=== PATIENT | female | born 1955 | race Caucasian/White ===

== ENCOUNTER → 2020-05-10 13:27 | Outpatient (BNVA) | payer MEDICARE, SELFPAY | PROVIDERS: PCP Family Medicine; Referring Provider Family Medicine; Visit Provider Surgery | DX: R92.0 Mammographic microcalcification found on diagnostic imaging of breast (principal) | CPT/HCPCS: 99204 ==

== ENCOUNTER 2020-05-12 09:21 | Outpatient (REF) | payer MEDICARE, SELFPAY ==
--- NOTE | 2020-05-12 09:26 | MM_ITS ---
EXAMINATION: STEREOTACTIC TOMOSYNTHESIS-GUIDED VACUUM-ASSISTED BREAST BIOPSY, RIGHT SPECIMEN RADIOGRAPH, RIGHT POST PROCEDURE DIGITAL MAMMOGRAM, RIGHT CLINICAL INFORMATION: Increased fine calcifications central 12:00 right breast for stereotactic sampling. COMPARISON: Mammography 07/09/2019, 09/11/2019, 04/06/2020. TECHNIQUE/PROCEDURE: Informed consent was obtained from the patient after discussion of the benefits, risks, and alternatives to biopsy today. Patient appeared to understand. Gave opportunity for questions. Patient signed consent form. BIOPSY TABLE: [employer] Prone Biopsy System. LESION: Increased fine calcifications central 12:00 right breast residing between 2 larger benign coarse calcifications. LOCAL ANESTHESIA: 5 mL 1% lidocaine; 10 mL 1% lidocaine with epinephrine. DERMATOTOMY: Single skin figueroa dermatotomy performed. NEEDLE: [employer] 9-gauge vacuum assisted core biopsy device. APPROACH: craniocaudal. TARGETING: Digital breast tomosynthesis used for targeting. CORES: 6. CLIP: [employer] T-shaped marker. SPECIMEN RADIOGRAPH: Specimen radiograph is taken in separate room using digital mammography. The index calcifications are in the excised cores. There are over 30 calcifications in the cores. POST PROCEDURE UNILATERAL DIGITAL MAMMOGRAM: The post biopsy mammogram is performed in separate room using separate digital mammography equipment from the biopsy procedure. CC and ML views are obtained. The breasts are heterogeneously dense, which may obscure small masses (breast composition category: c). The clip marker approximately 8 mm superficial to center of biopsy cavity consistent with mid accordion effect. The calcifications are decreased at the biopsy site consistent with the sampling. No gross hematoma. The patient tolerated the procedure well. No immediate complications. Home instructions reviewed with the patient. Final pathology results are pending. IMPRESSION: 1. Digital tomosynthesis-guided core biopsy right breast with clip placement. 2. Specimen radiograph taken and post procedure mammogram. There is mild superficial accordion effect. 3. Final pathology results pending. An addendum report will be issued.
== END 2020-05-12 09:22 | disposition home or self-care (01) ==
LOC: HO.MAMMO 09:21
PROVIDERS: PCP Family Medicine; Visit Provider Family Medicine
DX: R92.0 Mammographic microcalcification found on diagnostic imaging of breast (principal)
CPT/HCPCS: 19283; 88305; A4648

== ENCOUNTER → 2020-05-18 16:11 | Outpatient (BNVA) | payer MEDICARE, SELFPAY | PROVIDERS: PCP Family Medicine; Referring Provider Family Medicine; Visit Provider Surgery | DX: R92.0 Mammographic microcalcification found on diagnostic imaging of breast (principal); Z98.890 Other specified postprocedural states | CPT/HCPCS: 99213 ==

== ENCOUNTER → 2020-08-30 14:19 | Outpatient (BNVA) | payer MEDICARE, SELFPAY | PROVIDERS: Visit Provider Orthopaedic Surgery | DX: M22.2X1 Patellofemoral disorders, right knee (principal) | CPT/HCPCS: 20610; 99212; J1040 ==

== ENCOUNTER 2020-11-08 12:12 | Outpatient (REF) | payer MEDICARE, SELFPAY ==
--- NOTE | ~2020-11-08 | MM_ITS ---
EXAMINATION: MM DIAGNOSTIC DIGITAL BREAST TOMOSYNTHESIS, RIGHT CLINICAL INFORMATION: Benign right stereotactic biopsy for calcifications 05/12/2020 (Benign breast parenchyma with extensive fibrosis and coarse calcifications; negative for epithelial atypia, hyperplasia, and carcinoma). The lifetime risk of breast cancer based on the Tyrer-Cuzick Model is 6%. COMPARISON: Mammography: 05/12/2020, 04/06/2020, 09/11/2019, 07/09/2019 TECHNIQUE: Digital breast tomosynthesis is performed in both the craniocaudal and mediolateral oblique views along with computer-aided detection (CAD). Synthesized 2D images are generated from the tomosynthesis. Additional magnification right CC and magnification right ML views are obtained. FINDINGS: The breasts are heterogeneously dense, which may obscure small masses (ACR BI-RADS breast composition Category c). There is a biopsy clip marker central upper breast corresponding to the recent stereotactic sampling. Calcifications are decreased at the biopsy site as expected. Other calcifications appear stable. Parenchymal pattern is unremarkable. No mass or architectural abnormality. Results are provided to the patient at time of visit by the technologist. MM/MM tomosynthesis diagnostic RT IMPRESSION: Biopsy clip marker in position. Remaining calcifications stable. ASSESSMENT: BI-RADS 2: Benign RECOMMENDATION: Routine annual mammography screening, due in 6 months. This patient's information was entered into a reminder system with a target due date for their next mammogram.
== END 2020-11-08 12:13 | disposition home or self-care (01) ==
LOC: HO.MAMMO 12:12
PROVIDERS: Visit Provider Surgery
DX: R92.1 Mammographic calcification found on diagnostic imaging of breast (principal)
CPT/HCPCS: 77061; 77065

== ENCOUNTER 2021-02-03 10:23 | Outpatient (REF) | payer OTHER, SELFPAY ==
--- NOTE | ~2021-02-03 | XR_ITS ---
EXAMINATION: XR CHEST CLINICAL INFORMATION: Shortness of breath COMPARISON: None TECHNIQUE: 2 views of the chest were obtained. FINDINGS: The cardiac and mediastinal contours are normal. The lungs are clear. There is no pleural effusion or pneumothorax. There is curvature of the midthoracic spine to the right degenerative changes. XR/XR chest 2V IMPRESSION: No evidence for acute disease in the chest.
[2021-02-03 12:18] LABS: TSH reflex Free T4 1.23 uIU/mL (0.32-4.0)
[2021-02-03 12:20] LABS: Alanine Aminotransferase 22 U/L (0-31); Albumin Level 4.2 g/dL (3.5-5.0); Alkaline Phosphatase 76 U/L (39-117); Anion Gap 13 (12-20); Aspartate Amino Transferase 21 U/L (5-31); Bilirubin Total 0.4 mg/dL (0.0-1.0); Blood Urea Nitrogen 10 mg/dL (9-16); Calcium 9.4 mg/dL (8.4-10.2); Carbon Dioxide 23 mmol/L (22-29); Chloride 108 mmol/L (96-108); Cholesterol 192 mg/dL; Estimated Glomerular Filt Rate > 60; Glucose Fasting 102 mg/dL (60-99); HDL Cholesterol 49 mg/dL; LDL Cholesterol Calculated 119 mg/dl; Potassium 4.3 mmol/L (3.3-5.1); Sodium 140 mmol/L (135-145); Total Protein 6.9 g/dL (6.5-8.0); Triglycerides 120 mg/dL
[2021-02-04 07:06] LABS: Thyroglobulin Antibodies <1 IU/mL (< or = 1); Thyroid Peroxidase Antibodies 622 IU/mL (<9)
[2021-02-09 20:12] LABS: Vitamin D 25-OH, D2 <4 ng/mL; Vitamin D 25-OH, D3 38 ng/mL; Vitamin D 25-OH, Total 38 ng/mL (30-100)
== END 2021-02-03 10:24 | disposition home or self-care (01) ==
LOC: HO.LAB 10:23
PROVIDERS: PCP Internal Medicine; Visit Provider Internal Medicine
DX: R06.02 Shortness of breath (principal); E78.5 Hyperlipidemia, unspecified; E11.9 Type 2 diabetes mellitus without complications; E55.9 Vitamin D deficiency, unspecified; E03.9 Hypothyroidism, unspecified
CPT/HCPCS: 36415; 71046; 80053; 80061; 82306; 84443; 86376; 86800

== ENCOUNTER 2021-03-13 12:31 | Outpatient (REF) | payer OTHER, SELFPAY ==
--- NOTE | ~2021-03-13 | XR_ITS ---
EXAMINATION: XR SHOULDER, LEFT XR ANKLE, RIGHT CLINICAL INFORMATION: Pain. COMPARISON: None TECHNIQUE: 4 views left shoulder. 3 views right ankle. LEFT SHOULDER: 4 views of left shoulder show mild degeneration at the AC joint and mild acromial irregularity. Mild degeneration with mild likely degenerative cystic change of the humeral head. Mild degeneration in the inferior glenohumeral region. There is no evidence for an acute fracture or dislocation. RIGHT ANKLE: 3 views of the right ankle demonstrate no evidence for fracture or dislocation. Lateral soft tissue swelling is seen. Some mild bony spurring of the anterior aspect of the talus dorsally. Mild degeneration at the insertion of the Achilles. XR/XR shoulder LT min 2V IMPRESSION: Some evidence of degenerative changes are noted in the ankle and shoulder. Consider MRI to further evaluate if indicated. Soft tissue swelling laterally of the ankle. No acute fracture or dislocation.
--- NOTE | ~2021-03-13 | XR_ITS ---
EXAMINATION: XR SHOULDER, LEFT XR ANKLE, RIGHT CLINICAL INFORMATION: Pain. COMPARISON: None TECHNIQUE: 4 views left shoulder. 3 views right ankle. LEFT SHOULDER: 4 views of left shoulder show mild degeneration at the AC joint and mild acromial irregularity. Mild degeneration with mild likely degenerative cystic change of the humeral head. Mild degeneration in the inferior glenohumeral region. There is no evidence for an acute fracture or dislocation. RIGHT ANKLE: 3 views of the right ankle demonstrate no evidence for fracture or dislocation. Lateral soft tissue swelling is seen. Some mild bony spurring of the anterior aspect of the talus dorsally. Mild degeneration at the insertion of the Achilles. XR/XR ankle RT 2V IMPRESSION: Some evidence of degenerative changes are noted in the ankle and shoulder. Consider MRI to further evaluate if indicated. Soft tissue swelling laterally of the ankle. No acute fracture or dislocation.
== END 2021-03-13 12:32 | disposition home or self-care (01) ==
LOC: HO.XRAY 12:31
PROVIDERS: PCP Internal Medicine; Visit Provider Internal Medicine
DX: M25.512 Pain in left shoulder (principal); M25.571 Pain in right ankle and joints of right foot
CPT/HCPCS: 73030; 73600

== ENCOUNTER 2021-05-03 10:00 | Outpatient (RCR) | payer OTHER, SELFPAY ==
--- NOTE | 2021-04-05 13:54 | MHC.PT.EP ---
[facility] [place] Office [place] Office [place] Office [address] [phone] F: [phone] F: [phone] F: [phone] F: [phone] Physical Therapy Plan of Care Date of Evaluation: Date of Surgery: N/A Diagnosis: Pain in L shoulder Assessment: Pt is a 65yo F with a PMH including type 2 diabetes who presents to PT with chronic L shoulder pain since November. Pt presents with current impairments in pain, ROM, strength, soft tissue restrictions, and posture. She is limited functionally by reaching, lifting, overhead ADLs, and sleeping. She is a good candidate for skilled PT services to address current impairments and facilitate return to PLOF. Frequency and Duration: The patient will be seen 2x/week for 4 weeks Short Term Goals: Pt will be I with HEP to promote self management of symptoms Pt will improve L shoulder flexion by at least 5 degrees Pt will report pain < 8/10 after functional mobility Patient Registration Supervisor Goals: Pt will demonstrate full ROM and strength throughout L shoulder Pt will perform ADLs with pain < 4/10 Pt will demonstrate improvements in functional mobility by statistically significant improvement in SPADI outcome measure. Treatment Plan: Modalities to reduce pain, spasms and effusion. Manual therapy to restore motion and function. Therapeutic exercise to improve strength and flexibility. Neuromuscular re-education for posture and balance. Therapeutic activities to return to functional activities of daily living. Electronically signed by: Suzanne Gonzalez, PT, DPT Please sign and return to therapist. Thank you for your referral.
--- NOTE | 2021-05-10 09:53 | MHC.PT.DC ---
[facility] [place] Office [place] Office [place] Office [address]one [address] [phone] F: [phone] F: [phone] F: [phone] F: [phone] Physical Therapy Discharge Report Diagnosis: Pain in L shoulder Date of Surgery: N/A Date of Evaluation: 04/05/21 Date of Discharge: 05/09/21 Treatments to Date: 8 Cancellations to Date: No Shows to Date: Discharge Status: Achieved Goals Improved Function Independent with HEP Discharge Summary: Pts last PT visit was 05/03/21. She has made excellent progress since SOC. She has improved her L shoulder ROM and function and has had a decrease in pain. She is being D/C from skilled PT services. She was provided with updated, printed copy of HEP and theraband. No further skilled PT intervention indicated at this time. Electronically signed by: Suzanne Gonzalez, PT, DPT Please sign and return to therapist. Thank you for your referral.
== END 2021-05-10 09:53 | disposition home or self-care (01) ==
LOC: HO.PT 10:00
PROVIDERS: PCP Internal Medicine; Visit Provider Internal Medicine
DX: M25.512 Pain in left shoulder (principal)
CPT/HCPCS: 97110; 97140; 97150; 97162

== ENCOUNTER 2021-05-09 13:31 | Outpatient (REF) | payer OTHER, SELFPAY ==
--- NOTE | ~2021-05-09 | MM_ITS ---
EXAMINATION: MM SCREENING DIGITAL BREAST TOMOSYNTHESIS, BILATERAL CLINICAL INFORMATION: Screening. Asymptomatic. Benign right stereotactic biopsy 05/12/2020 (benign breast parenchyma with extensive fibrosis and coarse calcifications; negative for epithelial atypia, hyperplasia, and carcinoma). The lifetime risk of breast cancer based on the Tyrer-Cuzick Model is 12%. COMPARISON: Mammography: 11/08/2020, 05/12/2020, 04/24/2020, 720, 07/09/2019 TECHNIQUE: Digital breast tomosynthesis is performed in both the craniocaudal and mediolateral oblique views along with computer-aided detection (CAD). Synthesized 2D images are generated from the tomosynthesis. FINDINGS: The breasts are heterogeneously dense, which may obscure small masses (ACR BI-RADS breast composition Category c). There are no significant masses, abnormal calcifications, or other abnormalities. Parenchymal pattern is similar to prior studies. No developing density. There is biopsy clip marker central right breast with coarse and fine calcifications again seen in this area. No significant MM/MM tomosynthesis screening BI IMPRESSION: No mammographic evidence of malignancy. ASSESSMENT: BI-RADS 2: Benign RECOMMENDATION: Routine annual mammography screening. This patient's information was entered into a reminder system with a target due date for their next mammogram.
== END 2021-05-09 13:32 | disposition home or self-care (01) ==
LOC: HO.MAMMO 13:31
PROVIDERS: Visit Provider Internal Medicine
DX: Z12.31 Encounter for screening mammogram for malignant neoplasm of breast (principal)
CPT/HCPCS: 77063; 77067

== ENCOUNTER 2021-09-18 07:20 | Outpatient (REF) | payer OTHER, SELFPAY ==
--- NOTE | ~2021-09-18 | XR_ITS ---
EXAMINATION: BILATERAL KNEE X-RAY CLINICAL INFORMATION: Pain. COMPARISON: Previous x-ray May 2019. TECHNIQUE: Standing AP view of both knees and lateral and sunrise view of the right knee. FINDINGS: Right Knee: Bone alignment is normal. No fracture or dislocation is seen. There is mild arthritis at the medial femoral tibial and patellofemoral joints. There is a small osteophyte at the quadriceps tendon insertion to the patella. There is a small joint effusion. Left Knee: Standing AP view of the left knee demonstrates mild arthritis at the medial femoral tibial joint. XR/XR knee RT 2V IMPRESSION: RIGHT KNEE: Arthritis at the medial femoral tibial and patellofemoral joints and small joint effusion. LEFT KNEE: Mild arthritis at the medial femoral tibial joint.
--- NOTE | ~2021-09-18 | XR_ITS ---
EXAMINATION: BILATERAL KNEE X-RAY CLINICAL INFORMATION: Pain. COMPARISON: Previous x-ray May 2019. TECHNIQUE: Standing AP view of both knees and lateral and sunrise view of the right knee. FINDINGS: Right Knee: Bone alignment is normal. No fracture or dislocation is seen. There is mild arthritis at the medial femoral tibial and patellofemoral joints. There is a small osteophyte at the quadriceps tendon insertion to the patella. There is a small joint effusion. Left Knee: Standing AP view of the left knee demonstrates mild arthritis at the medial femoral tibial joint. XR/XR knee standing BI IMPRESSION: RIGHT KNEE: Arthritis at the medial femoral tibial and patellofemoral joints and small joint effusion. LEFT KNEE: Mild arthritis at the medial femoral tibial joint.
== END 2021-09-18 07:21 | disposition home or self-care (01) ==
LOC: HO.HOSX 07:20
PROVIDERS: Visit Provider Physician Assistant
DX: M76.821 Posterior tibial tendinitis, right leg (principal)
CPT/HCPCS: 73560; 73565; 99212

== ENCOUNTER 2021-10-03 08:26 | Outpatient (REF) | payer OTHER, SELFPAY ==
[2021-10-03 09:04] LABS: MANUAL DIFF FLAG NO
[2021-10-03 09:34] LABS: Basophils Percent Auto 0.7 % (0-2); Eosinophils Absolute Auto 0.1 X10*3/uL (0.0-0.4); Eosinophils Percent Auto 1.3 % (0-4); Hematocrit 43.2 % (37.0-47.0); Hemoglobin 14.2 g/dl (12.0-16.0); Imm Gran Abs Auto 0.02 X10*3/uL (0.00-0.03); Imm Gran Pct Auto 0.4 % (0.0-0.4); Lymphocytes Absolute Auto 1.6 X10*3/uL (1.2-4.9); Lymphocytes Percent Auto 29.6 % (20-40); Mean Corpuscular HGB Conc 32.9 g/dl (31.0-35.0); Mean Corpuscular Hemoglobin 29.1 pg (27.0-33.0); Mean Corpuscular Volume 88.5 fL (80.0-98.0); Mean Platelet Volume 9.6 fL (9.4-12.3); Monocytes Absolute Auto 0.5 X10*3/uL (0.1-1.2); Neutrophils Absolute Auto 3.2 x10*3/uL (2.0-8.3); Platelet Count 278 X10*3/uL (160-400); Red Blood Count 4.88 X10*6/uL (4.20-5.50); White Blood Count 5.5 X10*3/uL (4.8-10.8)
[2021-10-03 10:05] LABS: Alanine Aminotransferase 25 U/L (0-31); Albumin Level 4.4 g/dL (3.5-5.0); Alkaline Phosphatase 88 U/L (39-117); Anion Gap 13 (12-20); Aspartate Amino Transferase 22 U/L (5-31); Bilirubin Total 0.8 mg/dL (0.0-1.0); Blood Urea Nitrogen 15 mg/dL (9-16); Calcium 9.8 mg/dL (8.4-10.2); Carbon Dioxide 27 mmol/L (22-29); Chloride 103 mmol/L (96-108); Cholesterol 155 mg/dL; Estimated Glomerular Filt Rate > 60; Glucose Fasting 100 mg/dL (60-99); HDL Cholesterol 50 mg/dL; LDL Cholesterol Calculated 94 mg/dl; Potassium 4.4 mmol/L (3.3-5.1); Sodium 139 mmol/L (135-145); Total Protein 7.2 g/dL (6.5-8.0); Triglycerides 59 mg/dL
[2021-10-03 10:34] LABS: Folate 10.4 ng/mL (> or = 4.0); Vitamin B12 695 pg/mL (200-900)
[2021-10-03 11:24] LABS: Creatinine Urine 154.01 mg/dL; Microalbum/Creatinine Ratio Ur 3.8 ug/mg cr
[2021-10-06 23:26] LABS: Intrinsic Factor Antibodies Negative (Negative)
[2021-10-07 02:07] LABS: Parietal Cell Antibody <=20.0 Unit (<=20.0)
[2021-10-07 11:52] LABS: Vitamin D 25-OH, D2 <4 ng/mL; Vitamin D 25-OH, D3 32 ng/mL; Vitamin D 25-OH, Total 32 ng/mL (30-100)
== END 2021-10-03 08:27 | disposition home or self-care (01) ==
LOC: HO.LAB 08:26
PROVIDERS: PCP Internal Medicine; Visit Provider Internal Medicine
DX: E55.9 Vitamin D deficiency, unspecified (principal); E53.8 Deficiency of other specified B group vitamins; D64.9 Anemia, unspecified; E78.5 Hyperlipidemia, unspecified; E11.9 Type 2 diabetes mellitus without complications
CPT/HCPCS: 36415; 80053; 80061; 82043; 82306; 82607; 82746; 83516; 85025; 86340

== ENCOUNTER 2021-11-13 08:00 | Outpatient (REF) | payer OTHER, SELFPAY ==
--- NOTE | ~2021-11-13 | XR_ITS ---
EXAMINATION: RIGHT KNEE CLINICAL INFORMATION: Right knee pain COMPARISON: 09/18/2021 TECHNIQUE: AP bilateral, right knee Lateral and sunrise view FINDINGS: There is mild marginal spurring of the medial compartment of right and left knee joints consistent with mild changes of osteoarthritis. There is patellar spurring. There is no joint effusion. XR/XR knee RT 2V IMPRESSION: Stable mild degenerative changes of the right knee joint
--- NOTE | ~2021-11-13 | XR_ITS ---
EXAMINATION: RIGHT KNEE CLINICAL INFORMATION: Right knee pain COMPARISON: 09/18/2021 TECHNIQUE: AP bilateral, right knee Lateral and sunrise view FINDINGS: There is mild marginal spurring of the medial compartment of right and left knee joints consistent with mild changes of osteoarthritis. There is patellar spurring. There is no joint effusion. XR/XR knee standing BI IMPRESSION: Stable mild degenerative changes of the right knee joint
== END 2021-11-13 08:01 | disposition home or self-care (01) ==
LOC: HO.HOSX 08:00
PROVIDERS: Visit Provider Physician Assistant
DX: M76.821 Posterior tibial tendinitis, right leg (principal); M25.562 Pain in left knee; M25.571 Pain in right ankle and joints of right foot; M22.2X1 Patellofemoral disorders, right knee; E11.9 Type 2 diabetes mellitus without complications; I10 Essential (primary) hypertension; E03.9 Hypothyroidism, unspecified; E53.8 Deficiency of other specified B group vitamins; E55.9 Vitamin D deficiency, unspecified; Z88.0 Allergy status to penicillin
CPT/HCPCS: 20610; 73560; 73565; 99212; J1020

== ENCOUNTER 2021-12-06 09:44 | Outpatient (REF) | payer OTHER, SELFPAY ==
--- NOTE | ~2021-12-06 | MR_ITS ---
EXAMINATION: MRI BRAIN WITHOUT CONTRAST CLINICAL INFORMATION: Resting tremor. COMPARISON: CT head 05/04/2019. TECHNIQUE: Multiplanar MR imaging of the brain was performed without contrast. FINDINGS: There are scattered nonspecific foci of T2 FLAIR signal hyperintensity within the periventricular white matter. No acute territorial infarct. No pathological magnetic susceptibility artifact. Intracranial vascular flow voids are maintained. There is no intracranial mass effect or midline shift. No abnormal extra-axial collection. Lateral and third ventricles are normal. No hydrocephalus. Midline structures including the cervicomedullary junction are normal. No acute bone marrow signal changes. There is no mastoid or middle ear effusion. Mild paranasal sinus disease primarily affecting the ethmoid air cells. Globes and orbits are symmetric. MR/MR head/brain wo con IMPRESSION: There are a few scattered chronic small vessel ischemic changes within the periventricular white matter. Otherwise unremarkable examination. No evidence of acute territorial infarct or hemorrhage. No intracranial mass effect or hydrocephalus.
== END 2021-12-06 09:45 | disposition home or self-care (01) ==
LOC: HO.MRI 09:44
PROVIDERS: Visit Provider Internal Medicine
DX: G25.2 Other specified forms of tremor (principal)
CPT/HCPCS: 70551

== ENCOUNTER 2022-01-22 10:00 | Outpatient (RCR) | payer OTHER, SELFPAY ==
--- NOTE | 2021-12-01 13:23 | MHC.PT.EP ---
[facility] [place] Office [place] Office [place] Office [address] [phone] F: [phone] F: [phone] F: [phone] F: [phone] Physical Therapy Plan of Care Date of Evaluation: Date of Surgery: NA Diagnosis: POSTERIOR TIBIAL TENDONITIS R LEG Assessment: Pt IS 66 YO F REFERRED TO PT FROM ORTHO (ERIN SHERIFF) WITH POSTERIOR TIBIAL TENDONITIS R LEG. Pt REPORTS CHRONIC R KNEE PAIN (WITH RELIEF WITH CORTISONE INJECTIONS) AND PAIN R MED ANKLE WHICH STARTED INSIDIOUSLY ABOUT 5 MONTHS AGO. PRESENTS WITH LIMITED R ANKLE ROM AND STRENGTH WITH PAIN (AND REPORTED INFLAMMATION) WITH TTP AND LIMP (DECREASED WB R). SHOULD BENEFIT FROM PT TO ADDRESS THESE ISSUES Frequency and Duration: The patient will be seen 2X/WK X 8 WKS Short Term Goals: 1. INCREASED AWARENESS LE CARE 2. I HEP WITH DC EX PLAN 3. SLS AT LEAST 10 SEC R Igniter Assembler Goals: 1. Pt TO WEAR ORTHOTICS WITH RELIEF 2. DECREASED LIMP 3. DECREASED R ANKLE PAIN AT LEAST 50% WITH ADLS AND ROM 4. INCREASED R ANKLE STRENGTH 1/2 MM GRADE Treatment Plan: Modalities to reduce pain, spasms and effusion. Manual therapy to restore motion and function. Therapeutic exercise to improve strength and flexibility. Neuromuscular re-education for posture and balance. Therapeutic activities to return to functional activities of daily living. Electronically signed by: ALCIDES RAMOS PT Please sign and return to therapist. Thank you for your referral.
--- NOTE | 2022-01-22 13:49 | MHC.PT.DC ---
[facility] [place] Office [place] Office [place] Office [address] Tone Warner 140 [facility] [phone] F: [phone] F: [phone] F: [phone] F: [phone] Physical Therapy Discharge Report Diagnosis: POSTERIOR TIBIAL TENDONITIS R LEG Date of Surgery: NA Date of Evaluation: 12/01/21 Date of Discharge: 01/22/22 Treatments to Date: 12 Cancellations to Date: No Shows to Date: Discharge Status: Achieved Goals Improved Function Independent with HEP Discharge Summary: HAS MET MOST PT GOALS Electronically signed by: ALCIDES RAMOS PT Please sign and return to therapist. Thank you for your referral.
== END 2022-01-22 13:50 | disposition home or self-care (01) ==
LOC: HO.PT 10:00
PROVIDERS: PCP Internal Medicine; Visit Provider Physician Assistant
DX: M76.821 Posterior tibial tendinitis, right leg (principal)
CPT/HCPCS: 97035; 97110; 97112; 97140; 97161; 97530; 97535

== ENCOUNTER 2022-05-11 08:28 | Outpatient (REF) | payer OTHER, SELFPAY ==
--- NOTE | ~2022-05-11 | MM_ITS ---
EXAMINATION: MM SCREENING DIGITAL BREAST TOMOSYNTHESIS, BILATERAL CLINICAL INFORMATION: Screening. Asymptomatic. The lifetime risk of breast cancer based on the Tyrer-Cuzick Model is 11%. COMPARISON: Mammography: 05/09/2021, 11/08/2020, 05/12/2020, 04/06/2020, 09/11/2019, 07/09/2019 TECHNIQUE: Digital breast tomosynthesis is performed in both the craniocaudal and mediolateral oblique views along with computer-aided detection (CAD). Synthesized 2D images are generated from the tomosynthesis. FINDINGS: The breasts are heterogeneously dense, which may obscure small masses (ACR BI-RADS breast composition Category c). There are no significant masses, abnormal calcifications, or other abnormalities. There is no developing density or architectural abnormality. Biopsy clip marker again noted on right central breast mid depth. The axilla are unremarkable. No significant changes. MM/MM tomosynthesis screening BI IMPRESSION: No mammographic evidence of malignancy. ASSESSMENT: BI-RADS 1: Negative RECOMMENDATION: Routine annual mammography screening. This patient's information was entered into a reminder system with a target due date for their next mammogram.
== END 2022-05-11 08:29 | disposition home or self-care (01) ==
LOC: HO.MAMMO 08:28
PROVIDERS: Visit Provider Internal Medicine
DX: Z12.31 Encounter for screening mammogram for malignant neoplasm of breast (principal)
CPT/HCPCS: 77063; 77067

== ENCOUNTER 2022-07-11 07:59 | Outpatient (REF) | payer OTHER, SELFPAY ==
[2022-07-11 09:45] LABS: Alanine Aminotransferase 24 U/L (0-31); Albumin Level 4.3 g/dL (3.5-5.0); Alkaline Phosphatase 75 U/L (39-117); Anion Gap 14 (12-20); Aspartate Amino Transferase 20 U/L (5-31); Bilirubin Total 0.6 mg/dL (0.0-1.0); Blood Urea Nitrogen 14 mg/dL (9-16); Calcium 9.5 mg/dL (8.4-10.2); Carbon Dioxide 23 mmol/L (22-29); Chloride 107 mmol/L (96-108); Cholesterol 218 mg/dL; Estimated Glomerular Filt Rate > 60; Glucose Fasting 100 mg/dL (60-99); HDL Cholesterol 42 mg/dL; LDL Cholesterol Calculated 152 mg/dl; Potassium 4.5 mmol/L (3.3-5.1); Sodium 139 mmol/L (135-145); Thyroid Stimulating Hormone 3.66 uIU/mL (0.32-4.0); Total Protein 6.9 g/dL (6.5-8.0); Triglycerides 124 mg/dL; Vitamin D 25-OH Total 33.7 ng/mL (>30)
[2022-07-11 09:55] LABS: Vitamin B12 361 pg/mL (200-900)
[2022-07-11 11:08] LABS: Creatinine Urine 135.97 mg/dL; Microalbum/Creatinine Ratio Ur 5.1 ug/mg cr
== END 2022-07-11 08:00 | disposition home or self-care (01) ==
LOC: HO.LAB 07:59
PROVIDERS: PCP Internal Medicine; Visit Provider Internal Medicine
DX: E06.3 Autoimmune thyroiditis (principal); E55.9 Vitamin D deficiency, unspecified; E53.8 Deficiency of other specified B group vitamins; E11.9 Type 2 diabetes mellitus without complications; E78.5 Hyperlipidemia, unspecified; I10 Essential (primary) hypertension
CPT/HCPCS: 36415; 80053; 80061; 82043; 82306; 82607; 82746; 84443

== ENCOUNTER → 2022-08-29 09:04 | Outpatient (BNVA) | payer OTHER, SELFPAY | PROVIDERS: PCP Internal Medicine; Visit Provider Nurse Practitioner Family | DX: Z12.11 Encounter for screening for malignant neoplasm of colon (principal); K21.9 Gastro-esophageal reflux disease without esophagitis | CPT/HCPCS: 99202 ==

== ENCOUNTER 2022-11-12 07:41 | Outpatient (REF) | payer OTHER, SELFPAY ==
[2022-11-12 08:26] LABS: Alanine Aminotransferase 30 U/L (0-31); Albumin Level 4.4 g/dL (3.5-5.0); Alkaline Phosphatase 83 U/L (39-117); Anion Gap 15 (12-20); Aspartate Amino Transferase 24 U/L (5-31); Bilirubin Total 0.6 mg/dL (0.0-1.0); Blood Urea Nitrogen 15 mg/dL (9-16); Calcium 9.4 mg/dL (8.4-10.2); Carbon Dioxide 27 mmol/L (22-29); Chloride 106 mmol/L (96-108); Cholesterol 153 mg/dL; Estimated Glomerular Filt Rate > 60; Glucose Fasting 105 mg/dL (60-99); HDL Cholesterol 43 mg/dL; LDL Cholesterol Calculated 95 mg/dl; Potassium 4.3 mmol/L (3.3-5.1); Sodium 144 mmol/L (135-145); Triglycerides 78 mg/dL
[2022-11-12 08:56] LABS: Thyroid Stimulating Hormone 4.38 uIU/mL (0.32-4.0); Vitamin B12 404 pg/mL (200-900); Vitamin D 25-OH Total 36.5 ng/mL (>30)
[2022-11-12 08:58] LABS: Creatinine Urine 174.54 mg/dL
== END 2022-11-12 07:42 | disposition home or self-care (01) ==
LOC: HO.LAB 07:41
PROVIDERS: PCP Internal Medicine; Visit Provider Internal Medicine
DX: E55.9 Vitamin D deficiency, unspecified (principal); E53.8 Deficiency of other specified B group vitamins; E78.5 Hyperlipidemia, unspecified; E06.3 Autoimmune thyroiditis; E11.9 Type 2 diabetes mellitus without complications
CPT/HCPCS: 36415; 80053; 80061; 82043; 82306; 82607; 82746; 84443

== ENCOUNTER 2023-01-22 08:20 | Outpatient (REF) | payer OTHER, SELFPAY ==
[2023-01-24 22:10] LABS: HPV mRNA E6/E7 rflx Not Detected (Not Detected)
== END 2023-01-22 08:21 | disposition home or self-care (01) ==
LOC: HO.LNP 08:20
PROVIDERS: PCP Internal Medicine; Visit Provider Advanced Practice Midwife
DX: Z01.419 Encounter for gynecological examination (general) (routine) without abnormal findings (principal); Z11.51 Encounter for screening for human papillomavirus (HPV)
CPT/HCPCS: 87624; 88142

== ENCOUNTER 2023-02-26 09:20 | Outpatient (REF) | payer OTHER, SELFPAY ==
[2023-02-26 11:14] LABS: Thyroid Stimulating Hormone 0.86 uIU/mL (0.32-4.0)
== END 2023-02-26 09:21 | disposition home or self-care (01) ==
LOC: HO.LAB 09:20
PROVIDERS: PCP Internal Medicine; Visit Provider Internal Medicine
DX: E06.3 Autoimmune thyroiditis (principal)
CPT/HCPCS: 36415; 84443

== ENCOUNTER 2023-05-17 07:39 | Outpatient (REF) | payer MEDICARE, SELFPAY ==
--- NOTE | ~2023-05-17 | MM_ITS ---
EXAMINATION: MM SCREENING DIGITAL BREAST TOMOSYNTHESIS, BILATERAL CLINICAL INFORMATION: Screening. Asymptomatic. COMPARISON: Mammography: This study is compared with prior exams dating back to 2019. TECHNIQUE: Digital breast tomosynthesis is performed in both the craniocaudal and mediolateral oblique views along with computer-aided detection (CAD). Synthesized 2D images are generated from the tomosynthesis. FINDINGS: The breasts are heterogeneously dense, which may obscure small masses (ACR BI-RADS breast composition Category c). There are grouped calcifications in the upper outer quadrant of the right breast. These warrant additional mammographic imaging magnification. There is a biopsy tissue marker present in the upper inner quadrant of the right right breast. There are associated, coarse benign calcifications. The right breast, there are no significant masses, abnormal calcifications, or other abnormalities. MM/MM tomosynthesis screening BI IMPRESSION: No mammographic evidence of malignancy. ASSESSMENT: BI-RADS BI-RADS 0 - Incomplete: Needs additional Imaging. RECOMMENDATION: Additional views of the right breast advised. Radiology department staff will contact the patient for additional imaging. Additional Imaging required This examination should not preclude the clinical evaluation of a suspicious palpable abnormality. This patient's information was entered into a reminder system with a target due date for their next mammogram.
== END 2023-05-17 07:40 | disposition home or self-care (01) ==
LOC: HO.MAMMO 07:39
PROVIDERS: PCP Internal Medicine; Visit Provider Internal Medicine
DX: Z12.31 Encounter for screening mammogram for malignant neoplasm of breast (principal)
CPT/HCPCS: 77063; 77067

== ENCOUNTER → 2023-05-17 08:15 | Outpatient (BNV) | payer MEDICARE, SELFPAY | PROVIDERS: PCP Internal Medicine; Visit Provider Radiology Diagnostic Radiology | DX: Z12.31 Encounter for screening mammogram for malignant neoplasm of breast (principal) | CPT/HCPCS: 77063; 77067 ==

== ENCOUNTER 2023-06-11 08:04 | Outpatient (AMB) | payer MEDICARE, SELFPAY ==
[2023-06-11 08:15] VITALS: BP 152/92; PULSE 90; O2SAT 98; BMI 34.2
--- NOTE | 2023-06-11 08:15 | MHC.PC.OV ---
Vital Signs 06/11/23 08:15 Height 5 ft 1 in Weight 181 lb BMI 34.2 BP 152/92 H Blood Pressure Location Lt brachial Position Sitting Pulse 90 Pulse Source Pulse Oximeter Pulse Oximetry (%) 98 Oxygen Delivery Method Room Air Intake Visit Reasons: DM Skip Pit Worker Required: Yes Allergies primidone Adverse Reaction (Severe, Verified 06/11/23 08:40) Dizziness Penicillins [PENICILLINS] Adverse Reaction (Intermediate, Verified 06/11/23 08:40) BURNING Medication List - Last Reconciled 06/11/23 by ARACELY Shaw atorvastatin 40 mg PO BEDTIME 90 days biotin mcg PO bisacodyl (Dulcolax (bisacodyl)) 10 mg (2 x 5 mg) PO ONCE 1 day cetirizine 10 mg PO DAILY 90 days cholecalciferol (vitamin D3) 25 mcg PO DAILY 90 days clotrimazole-betamethasone 1-0.05 % 1 appl topical BID 30 days cyanocobalamin (vitamin B-12) 500 mcg sublingual DAILY fluoxetine 20 mg PO DAILY ketoconazole-hydrocortisone 2-2.5 % 1 appl topical .once a day 30 days levothyroxine 75 mcg PO DAILY 90 days losartan 25 mg PO DAILY 90 days meloxicam 15 mg PO DAILY 30 days metformin 500 mg PO DAILY 90 days omeprazole 40 mg PO DAILY 90 days polyethylene glycol 3350 (Miralax) 238 grams PO ONCE trazodone 50 mg PO BEDTIME Tobacco use date assessed: 12/04/22 Fall risk assessment: No Falls in past year Last assessed Fall Risk: 06/11/23 Dental Screening Dental Screen Date: 06/11/23 Did you have a dental visit in the last 12 months?: No Did you have a dental problem in the last 6 months where you did not have access to dental care?: No Was dental information given to patient?: No HPI DM HPI Details Patient is a 67-year-old female who presents today to follow-up on her chronic conditions. Patient of Dr. Moe. Medical history significant for diabetes, hypothyroidism, hypercholesterolemia, hypertension among others. Patient reports that she is not always compliant with blood pressure and cholesterol medications, blood pressure slightly elevated in the office today. Patient did not take losartan this morning. Patient is interested in weight management referral for weight loss. 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 [facility] Medical History ASCUS of cervix with negative high risk HPV Uterine prolapse Female cystocele Leaking of urine Mild recurrent major depression Resting tremor Essential hypertension Autoimmune thyroiditis B12 deficiency Right ankle pain Left shoulder pain Shortness of breath Insomnia Hypovitaminosis D GERD (gastroesophageal reflux disease) Pure hypercholesterolemia Hypothyroidism Diabetes type 2, controlled Diabetes mellitus Surgical History History of hand surgery History of right breast biopsy (~2009) History of removal of ovarian cyst Family History Mother Abdominal ascites Father Pancreatitis Paternal Aunt History of breast cancer Social History Household Members: Family Housing: House Alcohol intake: never Patient Tobacco Use Status: Never used Tobacco e-Cigarette/Vaping Use: Never Used Second Hand Smoke Exposure: No service: No Current occupational status: retired Sexual orientation: Straight/Heterosexual Gender identity: Female Cognitive needs: No Hearing needs: No Vision needs: Yes Questionnaire PHQ-9 Over the last 2 weeks, how often have you been bothered by any of the following problems? 1. Little interest or pleasure in doing things: not at all 2. Feeling down, depressed, or hopeless: several days 3. Trouble falling or staying asleep, or sleeping too much: not at all 4. Feeling tired or having little energy: several days 5. Poor appetite or overeating: several days 6. Feeling bad about yourself - or that you are a failure or have let yourself or your family down: not at all 7. Trouble concentrating on things, such as reading the newspaper or watching television: not at all 8. Moving or speaking so slowly that other people could have noticed. Or the opposite - being so fidgety or restless that you have been moving around a lot more than usual: not at all 9. Thoughts that you would be better off or of hurting yourself in some way: not at all Total score: 3 Depression Screening Interpretation: Negative Depression Screening Done: Yes 59504 - PHQ-9 Billing: Yes Source: Developed by Drs. Brendan L. Cierra Morfin Kurt Kroenke and colleagues, with an educational kyle from [employer]. Thrive Questionnaire Date Thrive assessed: 12/04/22 AUDIT C Alcohol Use Questionnaire (AUDIT-C) 1. How often do you have a drink containing alcohol?: Never Total Score: 0 Score Reviewed/Action Taken: No ARVIND-7 AMB Questionnaire ARVIND-7 Date ARVIND - 7 assessed: 12/04/22 Source: Developed by Drs. Brendan Morfin, Vaughn Freeman and colleagues, with an educational kyle from [employer]. Review of Systems Const Denies body aches, Denies chills, Denies fever(s) and Denies headache(s) ENT Denies dizziness, Denies otalgia, Denies headache(s), Denies nasal discharge, Denies sinus pain and Denies sore throat Card Denies chest pain, Denies lightheadedness and Denies dyspnea Resp Denies cough, Denies dyspnea and Denies wheezing GI Denies abdominal pain Denies dysuria Musc Denies myalgias Skin/Breast Denies rash Neuro Denies dizziness and Denies headache(s) Aller/Immun Denies wheezing Physical exam (Primary Care) Vital Signs: Last Vital Signs Pulse 90 06/11/23 08:15 BP 152/92 H 06/11/23 08:15 Pulse Ox 98 06/11/23 08:15 Oxygen Delivery Method Room Air 06/11/23 08:15 BMI result Body Mass Index 34.2 Tobacco/Smoking Status: Tobacco use Status Tobacco use date assessed 12/04/22 06/11/23 08:17 Patient Tobacco Use Status Never used Tobacco 06/11/23 08:17 e-Cigarette/Vaping Use Never Used 06/11/23 08:17 PHQ-9: PHQ-9 Score PHQ-9: Total score 3 06/11/23 08:30 Depression Screening Interpretation: Negative Thrive Assessment: Date of Thrive Assessment Date Thrive assessed 12/04/22 06/11/23 08:17 Const General: cooperative and no acute distress Orientation/consciousness: patient oriented x3 HENMT Head: Yes normocephalic and Yes atraumatic Throat: Yes posterior oropharynx normal Eyes General: appearance normal, both eyes and all related structures Neck Neck: Yes normal visual inspection and Yes full ROM Resp Effort & Inspection: normal respiratory effort and able to speak in complete sentences Auscultation: clear to auscultation bilaterally, no crackles, no rales, no rhonchi and no wheezes Cardio Rate: regular rate Rhythm: regular rhythm Heart sounds: S1 normal heart sound present and S2 normal heart sound present GI Auscultation: normal bowel sounds Skin General skin exam: no rashes or lesions noted Neuro General: patient oriented x3 Gait exam (Neuro): Normal gait present Extrem General: Yes full ROM Office Procedures Flu Questionnaire Does the patient have a severe egg allergy?: No Does the patient have severe life threatening allergies?: No Does the patient have a fever or illness today?: No Has the patient ever had Guillain-[place] Syndrome?: No Has the patient ever had any past reaction to a flu shot?: No Results AMB Hemoglobin A1c AMB Hemoglobin A1c 5.7 % Last Edit by WHIT Rodriguez on 06/11/23 08:31 Immunizations flu vacc [id number] 6mos up(PF) 60 mcg(15 mcgx4)/0.5 mL IM syringe Performing Provider: ARACELY Shaw Performing Location: [facility] Administered by: Kylie Oliveira CMA on 06/11/23 08:22 Dose Route Admin Location Dispensed Lot Number Expiration Date NDC Proposal Review Analyst 0.5 mL IM Left Deltoid 0.5 mL [id number] 02/01/23 [id number] [employer] VIS Given Date VIS Provided VIS Publication Date 06/11/23 Single Vaccine 21 Eligibility Eligibility Date Funding Source Not [facility] Eligible 06/11/23 Private Results Reviewed Results Reviewed: Laboratory Last Values Hgb A1c (Clinic) 5.7 % (4.0-6.0) 06/11/23 08:11 Assessment and Plan Assessment & Plan (1) Obesity (BMI 30.0-34.9): Code(s): E66.9 - Obesity, unspecified Plan: Healthy food choices and exercise as tolerated Weight management referral (2) Essential hypertension: Code(s): I10 - Essential (primary) hypertension Plan: Goal BP equal or less than 140/90 Reinforced compliance with losartan Low-sodium diet (3) Hypothyroidism: Code(s): E03.9 - Hypothyroidism, unspecified Qualifiers: Hypothyroidism type: acquired Qualified Code(s): E03.9 - Hypothyroidism, unspecified Plan: Continue levothyroxine (4) Diabetes type 2, controlled: Code(s): E11.9 - Type 2 diabetes mellitus without complications Qualifiers: Diabetes mellitus senior living insulin use: without buttermaker continuous churn use Diabetes mellitus complication status: without complication Qualified Code(s): E11.9 - Type 2 diabetes mellitus without complications Plan: A1c 5.7 today Continue metformin Low-carbohydrate diet (5) Pure hypercholesterolemia: Code(s): E78.00 - Pure hypercholesterolemia, unspecified Plan: Reinforce compliance with atorvastatin Low-cholesterol diet Plan Keep appointment with PCP as scheduled Encouraged to complete blood work that was ordered by PCP Orders: Orders Influenza [id number] Immunization Today Z23 - Encounter for immunization AMB Hemoglobin A1c Today E11.9 - Type 2 diabetes mellitus without complications Referrals Medical Weight Management Referral E66.9 - Obesity, unspecified Coding Level of Care Code Est Pt Level 4 (05863) Diagnoses Obesity (BMI 30.0-34.9) E66.9 Essential hypertension I10 Acquired hypothyroidism E03.9 Hypothyroidism type: acquired Controlled type 2 diabetes mellitus without complication, without long-term current use of insulin E11.9 Diabetes mellitus buttermaker continuous churn insulin use: without senior living use Diabetes mellitus complication status: without complication Pure hypercholesterolemia E78.00
== END 2023-06-11 08:53 | disposition home or self-care (01) ==
PROVIDERS: PCP Internal Medicine; Visit Provider Nurse Practitioner Family
DX: Z23 Encounter for immunization (principal); E11.9 Type 2 diabetes mellitus without complications; E03.9 Hypothyroidism, unspecified; I10 Essential (primary) hypertension; E78.00 Pure hypercholesterolemia, unspecified
CPT/HCPCS: 83036; 90471; 90686; 99214

== ENCOUNTER 2023-07-01 08:38 | Outpatient (REF) | payer MEDICARE, SELFPAY ==
--- NOTE | ~2023-07-01 | MM_ITS ---
EXAMINATION: MM DIAGNOSTIC DIGITAL MAMMOGRAPHY, RIGHT CLINICAL INFORMATION: Evaluate calcifications upper outer right breast middle one third. COMPARISON: Mammography: Screening mammography 05/17/2023, and dating back to 05/09/2021. TECHNIQUE: Digital mammography is performed in the following views: Right CC x2 magnification views, and right 2-D ML magnification view. FINDINGS: The breasts are heterogeneously dense, which may obscure small masses (ACR BI-RADS breast composition Category c). There is a group of perhaps minimally increasing loosely grouped minimally pleomorphic predominantly coarse calcifications with 2 curvilinear forms, however no linear, branching, or significantly pleomorphic forms. These have a benign morphology and appears similar to other benign small grouped calcifications throughout the right breast, including a previously biopsied group in the lower mid breast which was benign. MM/MM added views RT IMPRESSION: Calcifications upper outer right breast are probably benign. Six-month interval follow-up standard magnification views recommended to ensure stability. ASSESSMENT: BI-RADS BI-RADS 3 - Probably benign finding(s) - 6 month follow-up suggested RECOMMENDATION: 6 Month F/U This patient's information was entered into a reminder system with a target due date for their next mammogram.
== END 2023-07-01 08:39 | disposition home or self-care (01) ==
LOC: HO.MAMMO 08:38
PROVIDERS: PCP Internal Medicine; Visit Provider Internal Medicine
DX: R92.1 Mammographic calcification found on diagnostic imaging of breast (principal)
CPT/HCPCS: 77065

== ENCOUNTER → 2023-07-01 09:30 | Outpatient (BNV) | payer MEDICARE, SELFPAY | PROVIDERS: PCP Internal Medicine; Visit Provider Radiology Diagnostic Radiology | DX: R92.1 Mammographic calcification found on diagnostic imaging of breast (principal) | CPT/HCPCS: 77065 ==

== ENCOUNTER 2023-08-08 09:48 | Outpatient (REF) | payer MEDICARE, SELFPAY | END 2023-08-08 09:49 | disposition home or self-care (01) | LOC: HO.LAB 09:48 | PROVIDERS: Visit Provider Internal Medicine | DX: I10 Essential (primary) hypertension (principal); E11.9 Type 2 diabetes mellitus without complications; E78.5 Hyperlipidemia, unspecified; E55.9 Vitamin D deficiency, unspecified; E53.8 Deficiency of other specified B group vitamins | CPT/HCPCS: 36415; 80053; 80061; 82043; 82306; 82570; 82607; 82746 ==

== ENCOUNTER 2023-11-13 13:37 | Outpatient (AMB) | payer OTHER, SELFPAY ==
--- NOTE | 2023-11-13 14:25 | A.OFFPC_ITS ---
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 Assistant Required: No Accompanied by: Self / Same As Patient Allergies primidone Adverse Reaction (Severe, Verified 11/13/23 14:56) Dizziness Penicillins [PENICILLINS] Adverse Reaction (Intermediate, Verified 11/13/23 14:56) BURNING Medication List - Last Reconciled 11/13/23 by Sandy Chong MD atorvastatin 80 mg PO BEDTIME 90 days biotin mcg PO cetirizine 10 mg PO DAILY 90 days cholecalciferol (vitamin D3) 25 mcg PO DAILY 90 days clotrimazole-betamethasone 1-0.05 % 1 appl topical BID 30 days ketoconazole-hydrocortisone 2-2.5 % 1 appl topical .once a day 30 days levothyroxine 75 mcg PO DAILY 90 days losartan 25 mg PO DAILY 90 days meloxicam 15 mg PO DAILY 30 days metformin 500 mg PO DAILY 90 days omeprazole 40 mg PO DAILY 90 days Tobacco use date assessed: 11/13/23 Fall risk assessment: No Falls in past year Last assessed Fall Risk: 11/13/23 Dental Screening Dental Screen Date: 11/13/23 Did you have a dental visit in the last 12 months?: No Did you have a dental problem in the last 6 months where you did not have access to dental care?: No Was dental information given to patient?: Patient has dentist HPI HPI Comments History of Present Illness Details This is a 67-year-old female with diabetes mellitus type 2 and mild recurrent major depression that comes for her physical exam. A1c within goal. Depression stable with fluoxetine. At the moment follows with psychiatry. Last mammogram was 2022 and was normal. Last Pap smear was negative for HPV and show ascus. Has not had a colonoscopy and has no risk of colon cancer. I will order Cologuard. Denies any chest pain or shortness of breath. She is obese with a BMI of 37.2 and was advised to diet and exercise to reach BMI goal less than 30 pills [facility] Medical History (Updated 11/13/23 @ 15:38 by Sandy Chong MD) Severe obesity (BMI 35.0-35.9 with comorbidity) ASCUS of cervix with negative high risk HPV Uterine prolapse Female cystocele Leaking of urine Mild recurrent major depression Resting tremor Essential hypertension Autoimmune thyroiditis B12 deficiency Right ankle pain Left shoulder pain Shortness of breath Insomnia Hypovitaminosis D GERD (gastroesophageal reflux disease) Pure hypercholesterolemia Hypothyroidism Diabetes type 2, controlled Diabetes mellitus Surgical History History of hand surgery History of right breast biopsy (~2009) History of removal of ovarian cyst Family History Mother Abdominal ascites Father Pancreatitis Paternal Aunt History of breast cancer Social History Household Members: Family Housing: House Alcohol intake: never Patient Tobacco Use Status: Never used Tobacco e-Cigarette/Vaping Use: Never Used Second Hand Smoke Exposure: No service: No Current occupational status: retired Sexual orientation: Straight/Heterosexual Gender identity: Female Cognitive needs: No Hearing needs: No Vision needs: Yes Questionnaire PHQ-9 Over the last 2 weeks, how often have you been bothered by any of the following problems? 1. Little interest or pleasure in doing things: several days 2. Feeling down, depressed, or hopeless: more than half the days 3. Trouble falling or staying asleep, or sleeping too much: not at all 4. Feeling tired or having little energy: more than half the days 5. Poor appetite or overeating: several days 6. Feeling bad about yourself - or that you are a failure or have let yourself or your family down: not at all 7. Trouble concentrating on things, such as reading the newspaper or watching television: not at all 8. Moving or speaking so slowly that other people could have noticed. Or the opposite - being so fidgety or restless that you have been moving around a lot more than usual: not at all 9. Thoughts that you would be better off or of hurting yourself in some way: not at all Total score: 6 Depression Screening Interpretation: Positive Depression Screening Follow-up: Existing condition, In treatment and Community Mental Health Worker F/U Depression Screening Done: Yes 82234 - PHQ-9 Billing: Yes Source: Developed by Drs. Brendan L. Cierra Morfin Kurt Kroenke and colleagues, with an educational kyle from [employer]. Thrive Questionnaire Date Thrive assessed: 11/13/23 I am a: Patient What is your living situation today?: I have a steady place to live Within the past 12 months, did the food you bought not last and you didn't have the money to get more?: Never true Within the past 12 months, did you worry whether your food would run out before you got money to buy more?: Never true Do you have trouble paying for medicines?: No Do you have trouble getting transportation to medical appointments?: No Do you have trouble paying your heating and electricity bill?: No Do you have trouble taking care of your child, family member or friend?: No Do you have trouble with day-to-day activities such as bathing, preparing meals, shopping, managing finances, etc.?: No Are you currently unemployed and looking for a job?: No Are you interested in more education?: No Please select the resources that you would like help with: None Currently or been in a relationship where the following occur: no concerns reported THRIVE Score: 0 AUDIT C Alcohol Use Questionnaire (AUDIT-C) 1. How often do you have a drink containing alcohol?: Never Total Score: 0 ARVIND-7 AMB Questionnaire ARVIND-7 Date ARVIND - 7 assessed: 11/13/23 Feeling nervous, anxious, or on edge: 1 = Several days Not being able to stop or control worryin = Not at all Worrying too much about different things: 1 = Several days Trouble relaxin = Not at all Being so restless that it is hard to sit still: 0 = Not at all Becoming easily annoyed or irritable: 0 = Not at all Feeling afraid as if something awful might happen: 1 = Several days Total ARVIND-7 score (0-4 normal; 5-9 mild; 10-14 moderate; 15-21 severe): 3 Source: Developed by Drs. Brendan Morfin, Vaughn Freeman and colleagues, with an educational kyle from [employer]. ARVIND-7 Assessment Billing ARVIND-7 Assessment Tool: ARVIND-7 Assessment 51631 Review of Systems Const All systems reviewed & are unremarkable except as noted in HPI and below Eyes Reports no additional complaints, Denies change in vision and Denies other visual disturbances Card Denies chest pain at rest, Denies chest pain with activity, Denies edema, Denies irregular heart rhythm, Denies claudication, Denies dyspnea, Denies dyspnea on exertion, Denies orthopnea, Denies paroxysmal nocturnal dyspnea and Denies slow heart rate Resp Denies cough, Denies dyspnea and Denies dyspnea on exertion Physical exam (Primary Care) Vital Signs: Last Vital Signs BP 128/86 11/13/23 14:26 BMI result Body Mass Index 37.2 Tobacco/Smoking Status: Tobacco use Status Tobacco use date assessed 11/13/23 11/13/23 14:37 Patient Tobacco Use Status Never used Tobacco 11/13/23 14:25 e-Cigarette/Vaping Use Never Used 11/13/23 14:25 PHQ-9: PHQ-9 Score PHQ-9: Total score 6 11/13/23 15:00 Depression Screening Interpretation: Positive Depression Screening Follow-up: Existing condition, In treatment and Community Mental Health Worker F/U Thrive Assessment: Date of Thrive Assessment Date Thrive assessed 11/13/23 11/13/23 14:37 Currently or been in a relationship where the following occur: no concerns reported Const Orientation/consciousness: patient oriented x3 HENMT Head: Yes normal to inspection, Yes normocephalic and Yes atraumatic Ears: external ears normal Eyes General: appearance normal, both eyes and all related structures Eyelids: Yes eyelids normal Conjunctivae: conjunctivae normal Neck Neck: Yes normal visual inspection and Yes supple Resp Effort & Inspection: normal respiratory effort Auscultation: clear to auscultation bilaterally Cardio Jugular venous distension: no JVD Rate: regular rate Rhythm: regular rhythm Heart sounds: S1 normal heart sound present and S2 normal heart sound present GI Inspection: Yes normal to inspection Palpation (GI): Soft to palpation and nontender Auscultation: normal bowel sounds Skin General skin exam: no rashes or lesions noted Neuro General: patient oriented x3 and no focal motor deficits Extrem General: Yes full ROM Psych Appearance: grossly normal Results AMB Hemoglobin A1c AMB Hemoglobin A1c 5.8 % Last Edit by WHIT Dean on 11/13/23 14:4 2 Results Reviewed Results Reviewed: Laboratory Last Values Hgb A1c (Clinic) 5.8 % (4.0-6.0) 11/13/23 14:25 Assessment and Plan Assessment & Plan (1) Physical exam: Code(s): Z00.00 - Encounter for general adult medical examination without abnormal findings Plan: Repeat in a year. (2) Mild recurrent major depression: Code(s): F33.0 - Major depressive disorder, recurrent, mild Plan: Continue fluoxetine. (3) Diabetes type 2, controlled: Code(s): E11.9 - Type 2 diabetes mellitus without complications Qualifiers: Diabetes mellitus half-way insulin use: without half-way use Diabetes mellitus complication status: without complication Qualified Code(s): E11.9 - Type 2 diabetes mellitus without complications Plan: Continue metformin. A1c goal is equal or less than 7%. Orders: Orders AMB Hemoglobin A1c Today E11.9 - Type 2 diabetes mellitus without complications Vitamin D 25-OH Total 4 Months E55.9 - Vitamin D deficiency, unspecified Vitamin B12 and Folate 4 Months E53.8 - Deficiency of other specified B group vitamins Comprehensive [place]. Panel Fast 4 Months E11.9 - Type 2 diabetes mellitus without complications Lipid Panel 4 Months E78.5 - Hyperlipidemia, unspecified Microalbumin, Random (w Creat) 4 Months E11.9 - Type 2 diabetes mellitus without complications Thyroid Stimulating Hormone 4 Months E06.3 - Autoimmune thyroiditis Referrals Cologuard Test Z12.11 - Encounter for screening for malignant neoplasm of colon, Z12.12 - Encounter for screening for malignant neoplasm of rectum Medications: New rosuvastatin 40 mg PO DAILY 90 tabs 1RF 90 days fluoxetine 20 mg PO DAILY 90 caps 1RF 90 days Refilled ketoconazole-hydrocortisone 2-2.5 % 1 appl topical .once a day 30 grams 2RF 30 days metformin 500 mg PO DAILY 90 tabs 1RF 90 days E11.9 - Type 2 diabetes mellitus without complications Discontinued atorvastatin Discontinued Reason: No Longer Medically Relevant 80 mg PO BEDTIME 90 days 90 tabs 1RF Coding Level of Care Code Est Pt Prev Care >65y(60645) Diagnoses Physical exam Z00.00 Mild recurrent major depression F33.0 Controlled type 2 diabetes mellitus without complication, without long-term current use of insulin E11.9 Diabetes mellitus half-way insulin use: without 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
[2023-11-13 14:26] VITALS: BP 128/86; BMI 37.2
== END 2023-11-13 15:12 | disposition home or self-care (01) ==
PROVIDERS: Visit Provider Internal Medicine
DX: Z00.00 Encounter for general adult medical examination without abnormal findings (principal); F33.0 Major depressive disorder, recurrent, mild; E11.9 Type 2 diabetes mellitus without complications
CPT/HCPCS: 83036; 99397

== ENCOUNTER 2024-01-06 10:32 | Outpatient (REF) | payer MEDICARE, SELFPAY ==
--- NOTE | ~2024-01-06 | MM_ITS ---
EXAMINATION: MM DIAGNOSTIC DIGITAL BREAST TOMOSYNTHESIS, RIGHT CLINICAL INFORMATION: Six-month follow-up for calcifications right breast upper outer quadrant, middle one third. COMPARISON: Mammography: Diagnostic right mammography 07/01/2023. Screening mammography 05/17/2023, and dating back to 05/09/2021. TECHNIQUE: Digital right breast tomosynthesis is performed in both the craniocaudal and mediolateral oblique views along with computer-aided detection (CAD). Synthesized 2D images are generated from the tomosynthesis. In addition, a full-field right 3-D mediolateral view was obtained, as well as additional full-field right MLO view. Also, 2-D spot magnification views in the right CC and ML projections were obtained. FINDINGS: The breasts are heterogeneously dense, which may obscure small masses (ACR BI-RADS breast composition Category c). The previously seen group of minimally pleomorphic predominantly coarse calcifications within the upper outer quadrant of the right breast have continued to evolve in a benign weight, becoming even more coarse and dense. No new calcifications. These calcifications are benign, likely dystrophic. No further follow-up recommended. No suspicious finding in the remainder of the heterogeneously dense right breast. Parenchymal pattern remains stable. Other scattered benign type calcifications remain stable. Redemonstration of a benign post biopsy marker in the lower mid right breast. MM/MM tomosynthesis diagnostic RT IMPRESSION: There are no findings suspicious for malignancy. Calcifications in question in the upper outer right breast have continued to evolve in a benign fashion, now clearly benign and no further follow-up recommended. Recommend the patient return to routine annual screening mammography in 6 months. ASSESSMENT: BI-RADS BI-RADS 2 - Benign Findings RECOMMENDATION: 1 year F/U Results were provided to the patient at time of visit by the technologist. This patient's information was entered into a reminder system with a target due date for their next mammogram.
== END 2024-01-06 10:33 | disposition home or self-care (01) ==
LOC: HO.MAMMO 10:32
PROVIDERS: PCP Internal Medicine; Visit Provider Internal Medicine
DX: R92.1 Mammographic calcification found on diagnostic imaging of breast (principal)
CPT/HCPCS: 77061; 77065

== ENCOUNTER → 2024-01-06 11:30 | Outpatient (BNV) | payer MEDICARE, SELFPAY | PROVIDERS: PCP Internal Medicine; Visit Provider Radiology Diagnostic Radiology | DX: R92.1 Mammographic calcification found on diagnostic imaging of breast (principal) | CPT/HCPCS: 77065; G0279 ==

== ENCOUNTER 2024-04-08 09:48 | Outpatient (REF) | payer MEDICARE, SELFPAY ==
[2024-04-08 11:18] LABS: Alanine Aminotransferase 23 U/L (0-31); Albumin Level 4.2 g/dL (3.5-5.0); Alkaline Phosphatase 79 U/L (39-117); Anion Gap 16 (12-20); Aspartate Amino Transferase 26 U/L (5-31); Bilirubin Total 0.5 mg/dL (0.0-1.0); Blood Urea Nitrogen 13 mg/dL (9-16); Calcium 10.1 mg/dL (8.4-10.2); Carbon Dioxide 20 mmol/L (22-29); Chloride 108 mmol/L (96-108); Cholesterol 121 mg/dL (<200); Estimated Glomerular Filt Rate > 60; Glucose Fasting 102 mg/dL (60-99); HDL Cholesterol 53 mg/dL (>40); LDL Cholesterol Calculated 55 mg/dL (<100); Potassium 4.5 mmol/L (3.3-5.1); Sodium 139 mmol/L (135-145); Total Protein 7.6 g/dL (6.5-8.0); Triglycerides 69 mg/dL (<150)
[2024-04-08 11:33] LABS: Thyroid Stimulating Hormone 0.33 uIU/mL (0.32-4.0); Vitamin D 25-OH Total 34.3 ng/mL (>30)
[2024-04-08 11:41] LABS: Vitamin B12 321 pg/mL (200-900)
[2024-04-08 11:58] LABS: Creatinine Urine 129.81 mg/dL; Microalbum/Creatinine Ratio Ur 4.6 ug/mg cr (<30)
== END 2024-04-08 09:49 | disposition home or self-care (01) ==
LOC: HO.LAB 09:48
PROVIDERS: PCP Internal Medicine; Visit Provider Internal Medicine
DX: E55.9 Vitamin D deficiency, unspecified (principal); E53.8 Deficiency of other specified B group vitamins; R06.3 Periodic breathing; E11.9 Type 2 diabetes mellitus without complications; E78.5 Hyperlipidemia, unspecified
CPT/HCPCS: 36415; 80053; 80061; 82043; 82306; 82570; 82607; 82746; 84443

== ENCOUNTER 2024-04-14 09:13 | Outpatient (AMB) | payer MEDICARE, SELFPAY ==
--- NOTE | 2024-04-14 09:35 | A.OFFPC_ITS ---
Vital Signs 04/14/24 09:38 Height 5 ft 1 in Weight 198 lb BMI 37.4 BP 126/80 Blood Pressure Location Lt brachial Position Sitting Intake Visit Reasons: 4 month f/u Intake Note: Patient here for a 4 month follow up DM Application Tester Required: No Accompanied by: Self / Same As Patient Allergies primidone Adverse Reaction (Severe, Verified 04/14/24 10:08) Dizziness Penicillins [PENICILLINS] Adverse Reaction (Intermediate, Verified 04/14/24 10:08) BURNING Medication List - Last Reconciled 04/14/24 by Sandy Chong MD biotin mcg PO cetirizine 10 mg PO DAILY 90 days cholecalciferol (vitamin D3) 25 mcg PO DAILY 90 days clotrimazole-betamethasone 1-0.05 % 1 appl topical BID 30 days fluoxetine 20 mg PO DAILY 90 days ketoconazole-hydrocortisone 2-2.5 % 1 appl topical .once a day 30 days levothyroxine 75 mcg PO DAILY 90 days losartan 25 mg PO DAILY 90 days meloxicam 15 mg PO DAILY 30 days metformin 500 mg PO DAILY 90 days omeprazole 40 mg PO DAILY 90 days rosuvastatin 40 mg PO DAILY 90 days Tobacco use date assessed: 11/13/23 Fall risk assessment: No Falls in past year Last assessed Fall Risk: 04/14/24 Dental Screening Dental Screen Date: 11/13/23 HPI HPI Comments History of Present Illness Details This is a 68-year-old female with mild recurrent major depression, diabetes mellitus type 2, hypertension and pure hypercholesterolemia that complains of a skin lesion in the thigh papular that has increase in size and will be referred to Dermatology. Depression stable. A1c within goal. Blood pressure well controlled. LDL within goal. She also has autoimmune thyroiditis and TSH is normal. She is obese with a BMI of 37.4 and was advised to diet and exercise to reach BMI goal less than 30. [facility] Medical History (Updated 04/14/24 @ 10:13 by Sandy Chong MD) Severe obesity (BMI 35.0-35.9 with comorbidity) ASCUS of cervix with negative high risk HPV Uterine prolapse Female cystocele Leaking of urine Mild recurrent major depression Resting tremor Essential hypertension Autoimmune thyroiditis B12 deficiency Right ankle pain Left shoulder pain Shortness of breath Insomnia Hypovitaminosis D GERD (gastroesophageal reflux disease) Pure hypercholesterolemia Hypothyroidism Diabetes type 2, controlled Diabetes mellitus Surgical History History of hand surgery History of right breast biopsy (~2009) History of removal of ovarian cyst Family History Mother Abdominal ascites Father Pancreatitis Paternal Aunt History of breast cancer Social History Household Members: Family Housing: House Alcohol intake: never Patient Tobacco Use Status: Never used Tobacco e-Cigarette/Vaping Use: Never Used Second Hand Smoke Exposure: No service: No Current occupational status: retired Sexual orientation: Straight/Heterosexual Gender identity: Female Cognitive needs: No Hearing needs: No Vision needs: Yes Questionnaire Thrive Questionnaire Date Thrive assessed: 11/13/23 ARVIND-7 AMB Questionnaire ARVIND-7 Date ARVIND - 7 assessed: 11/13/23 Source: Developed by Drs. Brendan Morfin, Cierra Watts, Vaughn Ospina and colleagues, with an educational kyle from [employer]. Review of Systems Const All systems reviewed & are unremarkable except as noted in HPI and below Eyes Reports no additional complaints, Denies change in vision and Denies other visual disturbances Card Denies chest pain at rest, Denies chest pain with activity, Denies edema, Denies irregular heart rhythm, Denies claudication, Denies dyspnea, Denies dyspnea on exertion, Denies orthopnea, Denies paroxysmal nocturnal dyspnea and Denies slow heart rate Resp Denies cough, Denies dyspnea and Denies dyspnea on exertion GI Denies abdominal pain, Denies change in bowel habits, Denies excessive flatus, Denies nausea and Denies vomiting Physical exam (Primary Care) Vital Signs: Last Vital Signs BP 126/80 04/14/24 09:38 BMI result Body Mass Index 37.4 BMI Assessment/Plan discussion: High BMI High, discussed plan: lifestyle, weight reduction, dietary and physical activity Tobacco/Smoking Status: Tobacco use Status Tobacco use date assessed 11/13/23 04/14/24 09:37 Patient Tobacco Use Status Never used Tobacco 04/14/24 09:37 e-Cigarette/Vaping Use Never Used 04/14/24 09:37 Thrive Assessment: Date of Thrive Assessment Date Thrive assessed 11/13/23 04/14/24 09:37 Resp Effort & Inspection: normal respiratory effort Auscultation: clear to auscultation bilaterally Cardio Jugular venous distension: no JVD Rate: regular rate Rhythm: regular rhythm Heart sounds: S1 normal heart sound present and S2 normal heart sound present Extrem General: Yes full ROM Results AMB Hemoglobin A1c AMB Hemoglobin A1c 6.0 % Last Edit by WHIT Dean on 04/14/24 09:5 0 Results Reviewed Results Reviewed: Laboratory Last Values Hgb A1c (Clinic) 6.0 % (4.0-6.0) 04/14/24 09:35 Assessment and Plan Assessment & Plan (1) Mild recurrent major depression: Code(s): F33.0 - Major depressive disorder, recurrent, mild Plan: Continue fluoxetine. (2) Skin lesion: Code(s): L98.9 - Disorder of the skin and subcutaneous tissue, unspecified Plan: Referred to dermatology. (3) Essential hypertension: Code(s): I10 - Essential (primary) hypertension Plan: Continue losartan. Blood pressure goal is equal or less than 130/80. (4) Autoimmune thyroiditis: Code(s): E06.3 - Autoimmune thyroiditis Plan: Continue levothyroxine. (5) Diabetes type 2, controlled: Code(s): E11.9 - Type 2 diabetes mellitus without complications Qualifiers: Diabetes mellitus medical terminologist insulin use: without medical terminologist use Diabetes mellitus complication status: without complication Qualified Code(s): E11.9 - Type 2 diabetes mellitus without complications Plan: Continue metformin. A1c goal is equal or less than 7%. (6) Pure hypercholesterolemia: Code(s): E78.00 - Pure hypercholesterolemia, unspecified Plan: Continue statins. LDL goal is less than 70. Orders: Orders AMB Hemoglobin A1c Today E11.9 - Type 2 diabetes mellitus without complications Lipid Panel 6 Months E78.5 - Hyperlipidemia, unspecified Microalbumin, Random (w Creat) 6 Months E11.9 - Type 2 diabetes mellitus without complications Vitamin D 25-OH Total 6 Months E55.9 - Vitamin D deficiency, unspecified Thyroid Stimulating Hormone 6 Months E06.3 - Autoimmune thyroiditis Comprehensive [place]. Panel Fast 6 Months E11.9 - Type 2 diabetes mellitus without complications Vitamin B12 and Folate 6 Months E53.8 - Deficiency of other specified B group vitamins Referrals Dermatology Referral L98.9 - Disorder of the skin and subcutaneous tissue, unspecified Medications: Refilled metformin 500 mg PO DAILY 90 tabs 1RF 90 days E11.9 - Type 2 diabetes mellitus without complications meloxicam 15 mg PO DAILY 30 tabs 1RF 30 days E11.9 - Type 2 diabetes mellitus without complications levothyroxine 75 mcg PO DAILY 90 tabs 0RF 90 days E06.3 - Autoimmune thyroiditis Coding Level of Care Code Est Pt Level 4 (90663) Complex EM visit Add On G2211 Diagnoses Mild recurrent major depression F33.0 Skin lesion L98.9 Essential hypertension I10 Autoimmune thyroiditis E06.3 Controlled type 2 diabetes mellitus without complication, without long-term current use of insulin E11.9 Diabetes mellitus medical terminologist insulin use: without [facility] use Diabetes mellitus complication status: without complication Pure hypercholesterolemia E78.00 Time Spent (min) 23
[2024-04-14 09:38] VITALS: BP 126/80; BMI 37.4
== END 2024-04-14 10:23 | disposition home or self-care (01) ==
PROVIDERS: PCP Internal Medicine; Visit Provider Internal Medicine
DX: E11.9 Type 2 diabetes mellitus without complications (principal); F33.0 Major depressive disorder, recurrent, mild; L98.9 Disorder of the skin and subcutaneous tissue, unspecified; I10 Essential (primary) hypertension; E06.3 Autoimmune thyroiditis; E78.00 Pure hypercholesterolemia, unspecified
CPT/HCPCS: 83036; 99214; G2211

== ENCOUNTER 2024-07-06 09:39 | Outpatient (REF) | payer MEDICARE, SELFPAY ==
--- NOTE | ~2024-07-06 | MM_ITS ---
EXAMINATION: MM SCREENING DIGITAL BREAST TOMOSYNTHESIS, BILATERAL CLINICAL INFORMATION: Screening. Asymptomatic. COMPARISON: Mammography: Comparison is made with available priors TECHNIQUE: Digital breast mammography with tomosynthesis is performed in both the craniocaudal and mediolateral oblique views along with computer-aided detection (CAD). FINDINGS: The breasts are heterogeneously dense, which may obscure small masses (ACR BI-RADS breast composition Category c). Right marker clip. There are no significant masses, abnormal calcifications, or other abnormalities. MM/MM tomosynthesis screening BI IMPRESSION: No mammographic evidence of malignancy. ASSESSMENT: BI-RADS BI-RADS 2 - Benign Findings RECOMMENDATION: Routine annual mammography screening. 1 year F/U This examination should not preclude the clinical evaluation of a suspicious palpable abnormality. This patient's information was entered into a reminder system with a target due date for their next mammogram. Electronically signed by: Winter Villa DO 07/10/2024 11:11 AM SYDNEE
== END 2024-07-06 09:40 | disposition home or self-care (01) ==
LOC: HO.MAMMO 09:39
PROVIDERS: PCP Internal Medicine; Visit Provider Internal Medicine
DX: Z12.31 Encounter for screening mammogram for malignant neoplasm of breast (principal)
CPT/HCPCS: 77063; 77067

== ENCOUNTER → 2024-07-06 10:30 | Outpatient (BNV) | payer MEDICARE, SELFPAY | PROVIDERS: PCP Internal Medicine; Visit Provider Internal Medicine | DX: Z12.31 Encounter for screening mammogram for malignant neoplasm of breast (principal) | CPT/HCPCS: 77063; 77067 ==

== ENCOUNTER 2024-11-09 09:27 | Outpatient (REF) | payer MEDICARE, SELFPAY ==
--- OUTSIDE RECORDS SUMMARY | 2024-11-09 10:44 | XMS_ITS | Continuity of Care Document ---
Author Organization [facility] Address [address] [place] [address] Phone Care Team Providers Care Ophthalmic Tech Name Role Phone CHANA MORA OD Unavailable [...] Copied on Encounter [facility], [address], [place], [place], [id number], [place] tel:[phone] [facility] floaters (chief complaint) Age-related nuclear cataract, bilateralVitreous degeneration, bilateralType 2 diabetes mellitus without complicationsPuck ering of macula, right eye Dec-0 5-201 7 ABBY ZAYAS. [address], [place], [address], [place]. tel:[phone] Referring Provider: EFRAIN FAN OD, [facility] [address], [place], [address]. tel:[phone] [facility], [address], [place], [place], [id number], [place] tel:[phone] [facility] floaters (chief complaint) Diabetic Eval (chief complaint) Age-related nuclear cataract, bilateralPuckerin g of macula, right eyeVitreous degeneration, bilateral 7 [facility] Max. [address], [place], [place], [facility], . tel:[phone] Referring Provider: EFRAIN FAN OD, [facility] [address], [place], [address]. 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 Related to Type 2 diabetes mellitus without complications Impression/Plan - Al l reviewed with patient. Discussed signs and symptoms of RD and advised to rtc lakisha if any symptoms arise. Will cont to monitor. Related to Vitreous degeneration, bilateral Impression/Plan - Di scussed diagnosis in detail with patient. No treatment is currently recommended - not visually significant. Will cont to monitor. Related to Age-related nuclear cataract, bilateral Impression/Plan - Monitor. Relat ed to Puckering of macula, right eye Impression/Plan - Po sterior vitreous detachment accounts for the patient's complaints. There is no evidence of retinal pathology. All signs and risks of retinal detachment and tears were discussed in detail. Patient instructed to call the office immediately if any symptoms noted. Recommend the patient return to office for follow up. Related to Vitreous degeneration, bilateral Impression/Plan - Ca taracts account for the patient's complaints. No treatment currently recommended. The patient will monitor vision changes and contact us with any decrease in vision. Related to Age-related nuclear cataract, bilateral Follow up - 6 months DFE Related to Age-related nuclear cataract, bilateral Assessments Type Assessment Date assessment Age-related nuclear [...]
[2024-11-09 11:36] LABS: Creatinine Urine 173.33 mg/dL; Microalbum/Creatinine Ratio Ur 3.4 ug/mg cr (<30)
[2024-11-09 11:53] LABS: Folate 7.2 ng/mL (> or = 4.0); Vitamin B12 274 pg/mL (200-900)
[2024-11-09 12:54] LABS: Alanine Aminotransferase 34 U/L (0-31); Albumin Level 4.2 g/dL (3.5-5.0); Anion Gap 14 (12-20); Aspartate Amino Transferase 33 U/L (5-31); Bilirubin Total 0.5 mg/dL (0.0-1.0); Blood Urea Nitrogen 12 mg/dL (9-16); Calcium 9.4 mg/dL (8.4-10.2); Carbon Dioxide 22 mmol/L (22-29); Chloride 108 mmol/L (96-108); Cholesterol 139 mg/dL (<200); Estimated Glomerular Filt Rate > 60; Glucose Fasting 101 mg/dL (60-99); HDL Cholesterol 46 mg/dL (>40); LDL Cholesterol Calculated 77 mg/dL (<100); Potassium 4.1 mmol/L (3.3-5.1); Sodium 140 mmol/L (135-145); Thyroid Stimulating Hormone 0.61 uIU/mL (0.32-4.0); Total Protein 7.1 g/dL (6.5-8.0); Triglycerides 80 mg/dL (<150)
[2024-11-09 13:01] LABS: Alkaline Phosphatase 77 U/L (39-117)
== END 2024-11-09 09:28 | disposition home or self-care (01) ==
LOC: HO.LAB 09:27
PROVIDERS: PCP Internal Medicine; Visit Provider Internal Medicine
DX: E11.9 Type 2 diabetes mellitus without complications (principal); E55.9 Vitamin D deficiency, unspecified; E53.8 Deficiency of other specified B group vitamins; E78.5 Hyperlipidemia, unspecified; E06.3 Autoimmune thyroiditis
CPT/HCPCS: 36415; 80053; 80061; 82043; 82306; 82570; 82607; 82746; 84443

== ENCOUNTER 2024-11-16 08:28 | Outpatient (AMB) | payer MEDICARE, SELFPAY ==
--- NOTE | 2024-11-16 08:54 | A.OFFPC_ITS ---
Vital Signs 11/16/24 08:55 Height 5 ft 1 in Weight 201 lb BMI 38.0 BP 132/80 Blood Pressure Location Lt brachial Position Sitting Intake Visit Reasons: Annual Exam Intake Note: Patient here for an annual physical exam Mandolin Repairer Required: No Accompanied by: Self / Same As Patient Allergies primidone Adverse Reaction (Severe, Verified 11/16/24 09:14) Dizziness Penicillins [PENICILLINS] Adverse Reaction (Intermediate, Verified 11/16/24 09:14) BURNING Medication List - Last Reconciled 11/16/24 by Sandy Chong MD cetirizine 10 mg PO DAILY 90 days cholecalciferol (vitamin D3) 25 mcg PO DAILY 90 days clotrimazole-betamethasone 1-0.05 % 1 appl topical BID 30 days ketoconazole-hydrocortisone 2-2.5 % 1 appl topical .once a day 30 days levothyroxine 75 mcg PO DAILY 90 days losartan 25 mg PO DAILY 90 days meloxicam 15 mg PO DAILY 30 days metformin 500 mg PO DAILY 90 days omeprazole 40 mg PO DAILY 90 days rosuvastatin 40 mg PO DAILY 90 days Tobacco use date assessed: 11/16/24 Fall risk assessment: No Falls in past year Last assessed Fall Risk: 11/16/24 Dental Screening Dental Screen Date: 11/16/24 Did you have a dental visit in the last 12 months?: No Did you have a dental problem in the last 6 months where you did not have access to dental care?: No Was dental information given to patient?: No HPI HPI Comments History of Present Illness Details The patient is a 68-year-old female presenting for an annual physical examination. She has a well-documented history of type 2 diabetes mellitus, maintaining glycemic control with a hemoglobin A1c level at 6%. Her essential hypertension remains stable under losartan therapy with consistent blood pressure readings. The patient's lipid profile shows LDL levels near target, supported by ongoing rosuvastatin use for dyslipidemia. She continues management of hypothyroidism with levothyroxine. There is a concern for obesity, indicated by a BMI of 38; she reports associated fatigue and discusses dietary strategies for weight management. Of note, her past surgical history includes a right breast biopsy, hand surgery, and removal of an ovarian cyst. She recently underwent successful colorectal cancer screening with [employer], testing negative, with the next screening scheduled for 2026. Family history reveals the mother succumbed to abdominal ascites and the father to pancreatitis; however, these conditions do not currently impact her management plan. The patient abstains from tobacco and alcohol use, and there are no signs of anxiety or depression. She expresses a desire to receive the pneumonia vaccine during this visit. - Annual physical examination. - Mammography completed in July, ults pending. - Osteoporosis screening through dual-en ergy X-ray absorptiometry (DXA) to be scheduled. - Cologuard screening negative in November 2023; next screening due in 2026. - Pneumonia vaccination planned for toda y. - Recommendations for weight management via dietary modifications - reducing caloric intake and opting for smaller portions, emphasizing water over sugary drinks. - Continuation of medications for chroni c conditions - metformin for type 2 diabetes, rosuvastatin for dyslipidemia, losartan for hypertension, levothyroxine for hypothyroidism. - Regular monitoring of blood pressure, blood glucose, and lipid levels, with follow-up lab testing in four months. [facility] Medical History Severe obesity (BMI 35.0-35.9 with comorbidity) ASCUS of cervix with negative high risk HPV Uterine prolapse Female cystocele Leaking of urine Mild recurrent major depression Resting tremor Essential hypertension Autoimmune thyroiditis B12 deficiency Right ankle pain Left shoulder pain Shortness of breath Insomnia Hypovitaminosis D GERD (gastroesophageal reflux disease) Pure hypercholesterolemia Hypothyroidism Diabetes type 2, controlled Diabetes mellitus Surgical History History of hand surgery History of right breast biopsy (~2009) History of removal of ovarian cyst Family History Mother Abdominal ascites Father Pancreatitis Paternal Aunt History of breast cancer Social History Household Members: Family Housing: House Alcohol intake: never Patient Tobacco Use Status: Never used Tobacco e-Cigarette/Vaping Use: Never Used Second Hand Smoke Exposure: No service: No Current occupational status: retired Sexual orientation: Straight/Heterosexual Gender identity: Female Cognitive needs: No Hearing needs: No Vision needs: Yes Questionnaire PHQ-9 Over the last 2 weeks, how often have you been bothered by any of the following problems? 1. Little interest or pleasure in doing things: not at all 2. Feeling down, depressed, or hopeless: not at all 3. Trouble falling or staying asleep, or sleeping too much: not at all 4. Feeling tired or having little energy: several days 5. Poor appetite or overeating: not at all 6. Feeling bad about yourself - or that you are a failure or have let yourself or your family down: not at all 7. Trouble concentrating on things, such as reading the newspaper or watching television: not at all 8. Moving or speaking so slowly that other people could have noticed. Or the opposite - being so fidgety or restless that you have been moving around a lot more than usual: not at all 9. Thoughts that you would be better off or of hurting yourself in some way: not at all Total score: 1 Depression Screening Interpretation: Negative Depression Screening Done: Yes 68762 - PHQ-9 Billing: Yes Source: Developed by Drs. Brendan Morfin, Cierra Watts, Vaughn Ospina and colleagues, with an educational kyle from [employer]. Thrive Questionnaire Date Thrive assessed: 11/16/24 I am a: Patient What is your living situation today?: I have a steady place to live Within the past 12 months, did the food you bought not last and you didn't have the money to get more?: Never true Within the past 12 months, did you worry whether your food would run out before you got money to buy more?: Never true Do you have trouble paying for medicines?: No Do you have trouble getting transportation to medical appointments?: No Do you have trouble paying your heating and electricity bill?: No Do you have trouble taking care of your child, family member or friend?: No Do you have trouble with day-to-day activities such as bathing, preparing meals, shopping, managing finances, etc.?: No Are you currently unemployed and looking for a job?: No Are you interested in more education?: No Please select the resources that you would like help with: None Currently or been in a relationship where the following occur: No concerns reported THRIVE Score: 0 AUDIT C Alcohol Use Questionnaire (AUDIT-C) 1. How often do you have a drink containing alcohol?: Never Total Score: 0 Score Reviewed/Action Taken: No ARVIND-7 AMB Questionnaire ARVIND-7 Date ARVIND - 7 assessed: 11/16/24 Feeling nervous, anxious, or on edge: 0 = Not at all Not being able to stop or control worryin = Not at all Worrying too much about different things: 0 = Not at all Trouble relaxin = Not at all Being so restless that it is hard to sit still: 0 = Not at all Becoming easily annoyed or irritable: 0 = Not at all Feeling afraid as if something awful might happen: 0 = Not at all Total ARVIND-7 score (0-4 normal; 5-9 mild; 10-14 moderate; 15-21 severe): 0 Source: Developed by Drs. Brendan Morfin, Cierra Watts, Vaughn Ospina and colleagues, with an educational kyle from [employer]. ARVIND-7 Assessment Billing ARVIND-7 Assessment Tool: ARVIND-7 Assessment 93186 Review of Systems Const All systems reviewed & are unremarkable except as noted in HPI and below Card Denies chest pain at rest, Denies chest pain with activity, Denies edema, Denies irregular heart rhythm, Denies claudication, Denies dyspnea, Denies dyspnea on exertion, Denies orthopnea, Denies paroxysmal nocturnal dyspnea and Denies slow heart rate Resp Denies cough, Denies dyspnea and Denies dyspnea on exertion Physical exam (Primary Care) Vital Signs: Last Vital Signs BP 132/80 11/16/24 08:55 BMI result Body Mass Index 38.0 BMI Assessment/Plan discussion: High BMI High, discussed plan: lifestyle, weight reduction, dietary and physical activity Tobacco/Smoking Status: Tobacco use Status Tobacco use date assessed 11/16/24 11/16/24 09:03 Patient Tobacco Use Status Never used Tobacco 11/16/24 09:03 e-Cigarette/Vaping Use Never Used 11/16/24 09:03 PHQ-9: PHQ-9 Score PHQ-9: Total score 1 11/16/24 14:52 Depression Screening Interpretation: Negative Thrive Assessment: Date of Thrive Assessment Date Thrive assessed 11/16/24 11/16/24 09:03 Currently or been in a relationship where the following occur: No concerns reported Resp Effort & Inspection: normal respiratory effort Auscultation: clear to auscultation bilaterally Cardio Jugular venous distension: no JVD Rate: regular rate Rhythm: regular rhythm Heart sounds: S1 normal heart sound present and S2 normal heart sound present Extrem General: Yes full ROM Results AMB Hemoglobin A1c AMB Hemoglobin A1c 6.0 % Last Edit by WHIT Dean on 11/16/24 09:0 7 Immunizations pneumoc 20-spenser conj-dip cr(PF) 0.5 mL IM syringe Performing Provider: Sandy Chong MD Performing Location: [facility] Administered by: WHIT Dean on 11/16/24 09:28 Dose Route Admin Location Dispensed Lot Number Expiration Date NDC Assistant Professor In Family Studies 0.5 mL IM Left Deltoid 0.5 mL [id number] 09/05/25 [email or web address] VIS Given Date VIS Provided VIS Publication Date 11/16/24 Single Vaccine 22 Eligibility Eligibility Date Funding Source Not [facility] Eligible 11/16/24 Private Results Reviewed Results Reviewed: Laboratory Last Values Hgb A1c (Clinic) 6.0 % (4.0-6.0) 11/16/24 08:53 Coding Level of Care Code Est Pt Prev Care >65y(89170) Diagnoses Physical exam Z00.00 Mild recurrent major depression F33.0 Controlled type 2 diabetes mellitus without complication, without long-term current use of insulin E11.9 Diabetes mellitus intermediate manager insulin use: without nursing home use Diabetes mellitus complication status: without complication Additional Codes ARVIND-7 Assessment Billing - ARVIND-7 Assessment Tool: ARVIND-7 Assessment 60711 ([id number]) PHQ-9 - 14032 - PHQ-9 Billing: Yes ([id number]) Time Spent (min) 31 Assessment & Plan Assessment & Plan (1) Physical exam: Code(s): Z00.00 - Encounter for general adult medical examination without abnormal fi ndings Category: Medical (2) Mild recurrent major depression: Code(s): F33.0 - Major depressive disorder, recurrent, mild Category: Medical (3) Diabetes type 2, controlled: Code(s): E11.9 - Type 2 diabetes mellitus without complications Category: Medical Qualifiers: Diabetes mellitus nursing home insulin use: without nursing home use Diabetes mellitus complication status: without complication Qualified Code(s): E11.9 - Type 2 diabetes mellitus without complications Plan The patient?s chronic conditions including type 2 diabetes, dyslipidemia, and essential hypertension continue under stable management with metformin, rosuvastatin, and losartan respectively. Her stable hypothyroid condition is managed with levothyroxine. For obesity management, dietary modifications are recommended with a focus on caloric reduction and elimination of sugary beverages. She will undergo DXA scanning to assess bone density. She will receive the pneumonia vaccine during today's visit. Follow-up lab testing is planned in four months to reassess her diabetes and cardiovascular risk profile, ensuring continued optimization of her treatment plan. Patient was informed and verbally consented to the use of an ambient scribe for clinic note documentation during this visit. In our discussion, we reviewed the management plans for her type 2 diabetes, with an emphasis on maintaining her current regimen of metformin given the stable A1c levels. The reduction in her LDL cholesterol, approaching the therapeutic goal with rosuvastatin, was discussed with continued encouragement. We discussed controlling her hypertension, with losartan proving effective thus far. I counseled the patient on the necessity of dietary changes in addressing her obesity, emphasizing smaller meal sizes and minimizing sugary drinks. The patien t consented to the pneumococcal vaccine administration and the plan for dual- energy X-ray absorptiometry (DXA) to screen for potential osteoporosis was discussed. Plans for repeat lab evaluations in four months include monitoring her diabetes, cardiovascular risk, and renal function. Orders: Orders Lipid Panel 4 Months E78.5 - Hyperlipidemia, unspecified Vitamin D 25-OH Total 4 Months E55.9 - Vitamin D deficiency, unspecified Comprehensive [place]. Panel Fast 4 Months E11.9 - Type 2 diabetes mellitus without complications Pneumococcal 20 Immunization Today Z23 - Encounter for immunization AMB Hemoglobin A1c Today E11.9 - Type 2 diabetes mellitus without complications XR DEXA axial skeleton Today Z78.0 - Asymptomatic menopausal state Microalbumin, Random (w Creat) 4 Months R80.9 - Proteinuria, unspecified Medications: Refilled cetirizine 10 mg PO DAILY 90 days 90 tabs 3RF E11.9 - Type 2 diabetes mellitus without complications ketoconazole-hydrocortisone 2-2.5 % 1 appl topical .once a day 30 days 30 grams 2RF cholecalciferol (vitamin D3) 25 mcg PO DAILY 90 days 90 caps 1RF clotrimazole-betamethasone 1-0.05 % 1 appl topical BID 30 days 45 grams 1RF omeprazole 40 mg PO DAILY 90 days 90 caps 0RF Patient Instructions: - Continue taking prescribed medications: metformin, rosuvastatin, losartan, levothyroxine, and omeprazole. - Focus on weight management with portion control and a calorie-conscious diet. - Avoid sugary drinks and emphasize water intake. - Receive the pneumonia vaccine today. - Schedule and complete a dual-energy X-ray absorptiometry (DXA) scan for bone health. - Return for follow-up lab work in four months to monitor diabetes and cholesterol levels. - Maintain regular physical activity and healthy lifestyle practices. - Contact the office with any new or worsening symptoms.
[2024-11-16 08:55] VITALS: BP 132/80; BMI 38.0
--- OUTSIDE RECORDS SUMMARY | 2024-11-16 08:55 | XMS_ITS | Continuity of Care Document ---
Author Organization [facility] Address [address] [place] [address] Phone Care Team Providers Care Traffic Operations Engineer Name Role Phone CHANA MORA OD Unavailable [...] Copied on Encounter [facility], [address], [place], [place], [id number], [place] tel:[phone] [facility] floaters (chief complaint) Age-related nuclear cataract, bilateralVitreous degeneration, bilateralType 2 diabetes mellitus without complicationsPuck ering of macula, right eye Dec-0 5-201 7 ABBY ZAYAS. [address], [place], [address], [place]. tel:[phone] Referring Provider: EFRAIN FAN OD, [facility] [address], [place], [address]. tel:[phone] [facility], [address], [place], [place], [id number], [place] tel:[phone] [place] [facility] floaters (chief complaint) Diabetic Eval (chief complaint) Age-related nuclear cataract, bilateralPuckerin g of macula, right eyeVitreous degeneration, bilateral 7 [facility] Max. [address], [place], [place], [facility], . tel:[phone] Referring Provider: EFRAIN FAN OD, [facility] [address], [place], [address]. tel:[phone] Family History Family Member Type Diagnosis Age At Onset Cousin Problem (finding) glaucoma Problem (finding) Problem (finding) Payers Payer name Insurance type Covered green party ID Authoriza tion(s) No Information Social [...] Puckering of macula, right eye Impression/Plan - Em phasized importance of blood [...] monitor. 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
== END 2024-11-16 09:30 | disposition home or self-care (01) ==
PROVIDERS: PCP Internal Medicine; Visit Provider Internal Medicine
DX: Z00.00 Encounter for general adult medical examination without abnormal findings (principal); F33.0 Major depressive disorder, recurrent, mild; E11.9 Type 2 diabetes mellitus without complications; Z23 Encounter for immunization

== ENCOUNTER → 2024-11-16 08:28 | Outpatient (BNVA) | payer MEDICARE, SELFPAY | PROVIDERS: PCP Internal Medicine; Visit Provider Internal Medicine | DX: Z00.00 Encounter for general adult medical examination without abnormal findings (principal); Z23 Encounter for immunization; F33.0 Major depressive disorder, recurrent, mild; E11.9 Type 2 diabetes mellitus without complications | CPT/HCPCS: 83036; 90471; 90677; 96127; 99397 ==

== ENCOUNTER 2025-01-13 09:42 | Outpatient (REF) | payer MEDICARE, SELFPAY ==
--- NOTE | ~2025-01-13 | MM_ITS ---
EXAMINATION: DXA BONE DENSITY AXIAL HISTORY: Z78.0 - Asymptomatic menopausal state TECHNIQUE: Good Thing Dual energy absorptiometry (DEXA) of the lumbar spine, total left hip, and femoral neck was performed. COMPARISON: There are no prior studies for comparison. FINDINGS: The bone mineral density of the lumbar spine is 1.053, corresponding to a T-score of -1.0, and a Z-score of -0.3. This is indicative of normal bone mineral density. The bone mineral density of the left total hip is 1.067, corresponding to a T-score of 0.5, and a Z-score of 1.1. This is indicative of normal bone mineral density. The bone mineral density of the left femoral neck is 0.942, corresponding to a T-score of -0.7, and a Z-score of 0.3. This is indicative of normal bone mineral density. FRACTURE RISK: The FRAX index suggests a risk of major osteoporotic fracture of 3.9%, and of hip fracture 0.2%. MM/XR DEXA axial skeleton IMPRESSION: Based on bone mineral density, and according to World Health Organization (WHO) criteria, the diagnosis is consistent with normal bone mineral density. All bone density values are in grams per centimeter squared (g/cm2). Statistically, 68% of repeat scans fall within 1 SD (+/- 0.010 g/cm2 for AP spine L1-L4) and 1 SD (+/- 0.012 g/cm2 for femur total) FRAX is a trademark of the [employer] [place] [employer] Metabolic Bone Disease, a World Health Organization (WHO) Collaborating Center. Electronically signed by: Brendan Barkley MD 01/13/2025 11:04 AM EDT
== END 2025-01-13 09:43 | disposition home or self-care (01) ==
LOC: HO.MAMMO 09:42
PROVIDERS: PCP Internal Medicine; Visit Provider Internal Medicine
DX: Z13.820 Encounter for screening for osteoporosis (principal); Z78.0 Asymptomatic menopausal state
CPT/HCPCS: 77080

== ENCOUNTER → 2025-01-13 10:30 | Outpatient (BNV) | payer MEDICARE, SELFPAY | PROVIDERS: PCP Internal Medicine; Visit Provider Radiology Diagnostic Radiology | DX: E28.39 Other primary ovarian failure (principal) | CPT/HCPCS: 77080 ==

== ENCOUNTER 2025-04-13 08:59 | Outpatient (REF) | payer MEDICARE, SELFPAY ==
--- OUTSIDE RECORDS SUMMARY | 2017-07-09 05:00 | XMS_ITS | Continuity of Care Document ---
Author Organization [facility] Address [address] [place] [address] Phone Care Team Providers Care Academic Affairs Assistant Name Role Phone CHANA MORA OD Unavailable Unavailable Allergies, Adverse Reactions, Alerts Substance Reaction Status Criticality PENICILLIN Active No Information Medications Medication Instructions Dosage Effective Dates (start - stop) Status Comments fluoxetine 10 mg capsule take 2 capsule by oral route every day 20 MG - Active topiramate 25 mg tablet take 2 tablet by oral route 2 times every day in the morning and evening 50 MG - Active metformin 500 mg tablet take 1 tablet by oral route 2 times every day with morning and evening meals 500 MG - Active Tirosint 88 mcg capsule take 1 capsule by oral route every day 88 MCG - Active Procedures Procedure Date Oph Serv: Med Exam; Interm E 17 DilatedRetinl Exam W/interpretation DocA ndReviewed Oph Serv: Med Exam; Comp New 17 Advance Directives Directive Yes / No Effective Date File Name No Information Encounters Encounter Description Practice Location Reason(s) For Visit Diagnoses Date Provider Providers Copied on Encounter [facility], [address], [place], [place], [id number], [place] tel:[phone] [facility] floaters (chief complaint) Age-related nuclear cataract, bilateralVitreous degeneration, bilateralType 2 diabetes mellitus without complicationsPuck ering of macula, right eye Dec-0 5-201 7 ABBY ZAYAS. [address], [place], [address], [place]. tel:[phone] Referring Provider: EFRAIN FAN OD, [facility] [address], [place], [address]. tel:[phone] [facility], [address], [place], [place], [id number], [place] tel:[phone] [facility] floaters (chief complaint) Diabetic Eval (chief complaint) Age-related nuclear cataract, bilateralPuckerin g of macula, right eyeVitreous degeneration, bilateral 7 [facility]. [address], [place], [place], [facility], . tel: [phone] Referring Provider: EFRAIN FAN OD, [facility] [address], [place], [address]. tel:[phone] Family History Family Member Type Diagnosis Age At Onset Cousin Problem (finding) glaucoma Problem (finding) Problem (finding) Payers Payer name Insurance type Covered republican ID Authoriza tion(s) No Information Social History Type Description Quantity Date Captured Comments Alcohol Use Details Unknown Caffeine Use Details Unknown Tobacco Use Status No Information Smoking Status No Information Sex Female Chief Complaint And Reason For Visit From encounter dated '07/09/2017 09:00'. floaters (chief complaint). Description: The 61 year old female w /Diabetes M jory momin presents for evaluation of floaters in the right eye for the past year. Patient reports stable vision ou. She denies flashes of light. Reason For Referral Reason For Referral No Information History Of Present Illness Encounter Date Complaint History Of Prese nt Illness floaters The 61 year old female w /Diabetes M jory momin presents for evaluation of floaters in the right eye for the past year. Patient reports stable vision ou. She denies flashes of light. floaters The 61 year old female presents for evaluation of floaters in the right eye. State having an episode of darks dots around the central vision. i had no problem with the vision. Diabetic Eval The patient is p resent for Diabetic Eval in the right eye and left eye. State been on Metoformin for 2 years haven t notice no changes my blood sugar levels are always 98 or lower. Functional Status Date Functional Assessmen t No Information Instructions Date Instruction Additional Infor anju Impression/Plan - Di scussed diagnosis in detail with patient. No treatment is currently recommended - not visually significant. Will cont to monitor. Related to Age-related nuclear cataract, bilateral Impression/Plan - Al l reviewed with patient. Discussed signs and symptoms of RD and advised to rtc lakisha if any symptoms arise. Will cont to monitor. Related to Vitreous degeneration, bilateral Follow up - back to mushroom farmer, LEONARDO MOODYN Related to Age-related nuclear cataract, bilateral Impression/Plan - Em phasized importance of blood sugar control. Related to Type 2 diabetes mellitus without complications Impression/Plan - Di scussed diagnosis in detail with patient. No treatment is currently recommended - not visually significant. Will cont to monitor. Related to Puckering of macula, right eye Impression/Plan - Ca taracts account for the patient's complaints. No treatment currently recommended. The patient will monitor vision changes and contact us with any decrease in vision. Related to Age-related nuclear cataract, bilateral Impression/Plan - Po sterior vitreous detachment accounts for the patient's complaints. There is no evidence of retinal pathology. All signs and risks of retinal detachment and tears were discussed in detail. Patient instructed to call the office immediately if any symptoms noted. Recommend the patient return to office for follow up. Related to Vitreous degeneration, bilateral Follow up - 6 months DFE Related to Age-related nuclear cataract, bilateral Impression/Plan - Monitor. Relat ed to Puckering of macula, right eye Assessments Type Assessment Date assessment Age-related nuclear cataract, bi lateral: H25.13. assessment Vitreous degeneration, bilateral : H43.813. assessment Type 2 diabetes mellitus without complications (E11.9) - impression Age-related nuclear cataract, bi lateral: H25.13. impression Vitreous degeneration, bilateral : H43.813. impression Type 2 diabetes mellitus without complications (E11.9) - assessment Puckering of macula, right eye ( H35.371) - impression Puckering of macula, right eye ( H35.371) - Patient Care Teams Name Effective Dates (start - stop) Status Members No Information
[2025-04-13 10:41] LABS: Alanine Aminotransferase 34 U/L (0-31); Albumin Level 4.4 g/dL (3.5-5.0); Alkaline Phosphatase 72 U/L (39-117); Anion Gap 14 (12-20); Aspartate Amino Transferase 42 U/L (5-31); Blood Urea Nitrogen 11 mg/dL (9-16); Calcium 9.3 mg/dL (8.4-10.2); Carbon Dioxide 25 mmol/L (22-29); Chloride 107 mmol/L (96-108); Cholesterol 139 mg/dL (<200); Estimated Glomerular Filt Rate > 60; HDL Cholesterol 44 mg/dL (>40); Potassium 4.3 mmol/L (3.3-5.1); Sodium 142 mmol/L (135-145); Total Protein 7.4 g/dL (6.5-8.0); Triglycerides 110 mg/dL (<150)
== END 2025-04-13 09:00 | disposition home or self-care (01) ==
LOC: HO.LAB 08:59
PROVIDERS: PCP Internal Medicine; Visit Provider Internal Medicine
DX: E11.9 Type 2 diabetes mellitus without complications (principal); E55.9 Vitamin D deficiency, unspecified; E78.5 Hyperlipidemia, unspecified; R80.9 Proteinuria, unspecified
CPT/HCPCS: 36415; 80053; 80061; 82043; 82306; 82570

== ENCOUNTER 2025-04-22 08:59 | Outpatient (AMB) | payer MEDICARE, SELFPAY ==
--- OUTSIDE RECORDS SUMMARY | 2017-07-09 05:00 | XMS_ITS | Continuity of Care Document ---
Author Organization [facility] Address [address] [place] [address] Phone Care Team Providers Care Produce Associate Name Role Phone CHANA MORA OD Unavailable [...] Copied on Encounter [facility], [address], [place], [place], [id number], [place] tel:[phone] [facility] floaters (chief complaint) Age-related nuclear cataract, bilateralVitreous degeneration, bilateralType 2 diabetes mellitus without complicationsPuck ering of macula, right eye Dec-0 5-201 7 ABBY ZAYAS. [address], [place], [address], [place]. tel:[phone] Referring Provider: EFRAIN FAN OD, [facility] [address], [place], [address]. tel:[phone] [facility], [address], [place], [place], [id number], [place] tel:[phone] [facility] floaters (chief complaint) Diabetic Eval (chief complaint) Age-related nuclear cataract, bilateralPuckerin g of macula, right eyeVitreous degeneration, bilateral 7 [facility]. [address], [place], [place], [facility], . tel:[phone] Referring Provider: EFRAIN FAN OD, [facility] [address], [place], [address]. tel:[phone] Family History Family Member Type Diagnosis Age At Onset Cousin Problem (finding) glaucoma Problem (finding) Problem (finding) Payers Payer name Insurance type Covered alliance party ID Authoriza tion(s) No Information Social History [...] degeneration, bilateral Follow up - back to consulting intern, LEONARDO MOODYN Related to Age-related nuclear cataract, [...]
--- NOTE | 2025-04-22 09:09 | MHC.PC.OV ---
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 Required: No Accompanied by: Self / Same As Patient Allergies primidone Adverse Reaction (Severe, Verified 04/22/25 09:36) Dizziness Penicillins (PENICILLINS) Adverse Reaction (Intermediate, Verified 04/22/25 09:36) BURNING Medication List - Last Reconciled 04/22/25 by Sandy Chong MD cetirizine 10 mg PO DAILY 90 days cholecalciferol (vitamin D3) 25 mcg PO DAILY 90 days clotrimazole-betamethasone 1-0.05 % 1 appl topical BID 30 days ketoconazole-hydrocortisone 2-2.5 % 1 appl topical .once a day 30 days levothyroxine 75 mcg PO DAILY 90 days losartan 25 mg PO DAILY 90 days meloxicam 15 mg PO DAILY 30 days metformin 500 mg PO DAILY 90 days omeprazole 40 mg PO DAILY 90 days rosuvastatin 40 mg PO DAILY 90 days Tobacco use date assessed: 04/22/25 Fall risk assessment: No Falls in past year Dental Screening Dental Screen Date: 11/16/24 Did you have a dental visit in the last 12 months?: Yes Did you have a dental problem in the last 6 months where you did not have access to dental care?: No Was dental information given to patient?: Patient has dentist HPI HPI Comments History of Present Illness Details The patient is a 69-year-old female presenting with a follow-up on her chronic conditions. She has a history of Type 2 Diabetes Mellitus, with her most recent Hemoglobin A1c at 6.1%, which is within the target range of less than 7%. Her blood pressure is well-controlled at 130/86 mmHg. The patient also has hyperlipidemia, with her LDL cholesterol at 73 mg/dL and total cholesterol at 70 mg/dL, which are near the target goals. Her liver enzymes are slightly elevated, possibly due to medication use, but not concerning at this time. She experiences tinnitus, which is bothersome but manageable with protective measures such as using ear protection in noisy environments. The patient reports a history of depression, which is currently well-controlled without medication. She has hyperthyroidism and is on levothyroxine therapy. [facility] Medical History Severe obesity (BMI 35.0-35.9 with comorbidity) ASCUS of cervix with negative high risk HPV Uterine prolapse Female cystocele Leaking of urine Mild recurrent major depression Resting tremor Essential hypertension Autoimmune thyroiditis B12 deficiency Right ankle pain Left shoulder pain Shortness of breath Insomnia Hypovitaminosis D GERD (gastroesophageal reflux disease) Pure hypercholesterolemia Hypothyroidism Diabetes type 2, controlled Diabetes mellitus Surgical History History of hand surgery History of right breast biopsy (~2009) History of removal of ovarian cyst Family History Mother Abdominal ascites Father Pancreatitis Paternal Aunt History of breast cancer Social History Household Members: Family Housing: House Alcohol intake: never Patient Tobacco Use Status: Never used Tobacco e-Cigarette/Vaping Use: Never Used Second Hand Smoke Exposure: No service: No Current occupational status: retired Sexual orientation: Straight/Heterosexual Gender identity: Female Cognitive needs: No Hearing needs: No Vision needs: Yes Questionnaire Thrive Questionnaire Date Thrive assessed: 11/16/24 AUDIT C Alcohol Use Questionnaire (AUDIT-C) 1. How often do you have a drink containing alcohol?: Never 3. How often do you have six or more drinks on one occasion?: Never Total Score: 0 Score Reviewed/Action Taken: No ARVIND-7 AMB Questionnaire ARVIND-7 Date ARVIND - 7 assessed: 11/16/24 Source: Developed by Drs. Brendan Morfin, Cierra Watts, Vaughn Ospina and colleagues, with an educational kyle from [employer]. Review of Systems Const All systems reviewed & are unremarkable except as noted in HPI and below Card Denies chest pain at rest, Denies chest pain with activity, Denies edema, Denies irregular heart rhythm, Denies claudication, Denies dyspnea, Denies dyspnea on exertion, Denies orthopnea, Denies paroxysmal nocturnal dyspnea and Denies slow heart rate Resp Denies cough, Denies dyspnea and Denies dyspnea on exertion GI Denies abdominal pain, Denies change in bowel habits, Denies excessive flatus, Denies nausea and Denies vomiting Physical exam (Primary Care) Vital Signs: Last Vital Signs Pulse 83 04/22/25 09:11 BP 130/86 04/22/25 09:11 Pulse Ox 96 04/22/25 09:11 Oxygen Delivery Method Room Air 04/22/25 09:11 BMI result Body Mass Index 38.2 BMI Assessment/Plan discussion: High BMI High, discussed plan: lifestyle, weight reduction, dietary and physical activity Tobacco/Smoking Status: Tobacco use Status Tobacco use date assessed 04/22/25 04/22/25 09:12 Patient Tobacco Use Status Never used Tobacco 04/22/25 09:10 e-Cigarette/Vaping Use Never Used 04/22/25 09:10 Thrive Assessment: Date of Thrive Assessment Date Thrive assessed 11/16/24 04/22/25 09:10 Resp Effort & Inspection: normal respiratory effort Auscultation: clear to auscultation bilaterally Cardio Jugular venous distension: no JVD Rate: regular rate Rhythm: regular rhythm Heart sounds: S1 normal heart sound present and S2 normal heart sound present Extrem General: Yes full ROM Results AMB Hemoglobin A1c AMB Hemoglobin A1c 6.1 % Last Edit by WHIT Ford on 04/22/25 09:27 Results Reviewed Results Reviewed: Laboratory Last Values Hgb A1c (Clinic) 6.1 % (4.0-6.0) H 04/22/25 09:14 Coding Level of Care Code Est Pt Level 4 (32487) Complex EM visit Add On G2211 Diagnoses Pure hypercholesterolemia E78.00 Mild recurrent major depression F33.0 Diabetes type 2, controlled E11.9 Essential hypertension I10 Acquired hypothyroidism E03.9 Hypothyroidism type: acquired Time Spent (min) 22 Assessment & Plan Assessment & Plan (1) Pure hypercholesterolemia: Code(s): E78.00 - Pure hypercholesterolemia, unspecified Category: Medical (2) Mild recurrent major depression: Code(s): F33.0 - Major depressive disorder, recurrent, mild Category: Medical (3) Diabetes type 2, controlled: Code(s): E11.9 - Type 2 diabetes mellitus without complications Category: Medical (4) Essential hypertension: Code(s): I10 - Essential (primary) hypertension Category: Medical (5) Hypothyroidism: Code(s): E03.9 - Hypothyroidism, unspecified Category: Medical Qualifiers: Hypothyroidism type: acquired Qualified Code(s): E03.9 - Hypothyroidism, unspecified Plan Plan Patient was informed and verbally consented to the use of an ambient scribe for clinic note documentation during this visit. 1. Type 2 diabetes mellitus without complications E11.9 HCC 19 The patient's Type 2 Diabetes Mellitus is well-managed with a Hemoglobin A1c of 6.1%, which is within the target range. No changes to the current management plan are necessary at this time. 2. Essential (primary) hypertension I10 The patient's blood pressure is well-controlled at 130/86 mmHg. Continue current antihypertensive regimen without changes. 3. Hyperlipidemia, unspecified E78.5 The patient's LDL cholesterol is at 73 mg/dL and total cholesterol at 70 mg/dL, which are near target goals. No adjustments to lipid-lowering therapy are needed at this time. 4. Depression, unspecified F32.A The patient's depression is currently well-controlled without medication. No pharmacological intervention is required at this time. 5. Hypothyroidism, unspecified E03.9 The patient is on levothyroxine therapy for hypothyroidism. Continue current thyroid management regimen. Orders: Orders Lipid Panel 4 Months E78.5 - Hyperlipidemia, unspecified Microalbumin, Random (w Creat) 4 Months R80.9 - Proteinuria, unspecified Vitamin D 25-OH Total 4 Months E55.9 - Vitamin D deficiency, unspecified Thyroid Stimulating Hormone 4 Months E03.9 - Hypothyroidism, unspecified AMB Hemoglobin A1c Today Z13.9 - Encounter for screening, unspecified Comprehensive [place]. Panel Fast 4 Months E11.9 - Type 2 diabetes mellitus without complications
[2025-04-22 09:11] VITALS: BP 130/86; PULSE 83; O2SAT 96; BMI 38.2
--- OUTSIDE RECORDS SUMMARY | 2025-04-22 10:25 | XMS_ITS | Patient Health Record ---
Author Organization [facility] Address [address] [place] [address] Care Team Providers Care Filenet Developer Name Role Phone Adarsh Shahid AVILEZlyudmila Mejiaena Primary Care Provider U danieailarabella Myra Pastor Unavailable [phone] Myra Pastor Unavailable Unavailable Allergies Allergen (clinical drug ingredient) Drug/Non Drug Allergy documented on EMR Reaction Allergy Type Onset Date Status Penicillin Family Unknown Drug Allergy Active Reason For Referral No Information Medications Medication SIG (Take, Route, Frequency, Duration) Notes Start Date End Date Status Fluoxetine 20mg am Active Fluoxetine 10mg pm Active Metformin 500mg 3 Times per day Active Synthroid 50 MCG Tablet 1 tablet on an e mpty stomach in the morning Orally Once a day Active Vitamin B12 100 MCG Tablet Orally Active Topiramate 25 MG Tablet 1 tablet Orally Twice a day Active Immunizations Vaccine Route Administration Date Status Comme nts Influenza (whole) Unknown 06/11/2016 Administered PNEUMOCOCCAL WES Unknown 10/25/2016 Refused Social History Tobacco Use: Social History Observation Description Date Details (start date - stop date) Never Smoker NA - NA Social History Drugs/Alcohol: Social Info Question Answer Notes Drugs Have you used drugs other than those for medical reasons in the past 12 months? No Alcohol Screen Did you have a drink containing alcohol in the past year? No Points 0 Interpretation Negative Depression Screening: Social Info Question Answer Notes PHQ-2 Little interest or pleasure in doing thin gs Yes Feeling down, depressed, or hopeless Yes PHQ-9 Little interest or pleasure in doing thin gs Several days Feeling down, depressed, or hopeless Not at all Trouble falling or staying asleep, or sleeping t oo much Several days Feeling tired or having little energy Several da ys Poor appetite or overeating Several days Feeling bad about yourself, or that you are a failure, or have let yourself or your family down Not at all Trouble concentrating on thi ngs, such as reading the newspaper or watching television Not at all Moving or speaking so slowly that other people could have noticed. Or the opposite ? being so fidgety or restless that you have been moving around a lot more than usual Not at all Thoughts that you would be b karl off , or of hurting yourself in some way Not at all Total Score 4 Interpretation Minimal Depression Tobacco Use: Social Info Question Answer Notes Tobacco Use/Smoking Are you a: nonsmoker Tobacco use other than smoking: Are you an other tobac co user? No Problems Problem Type SNOMED Code ICD Code Onset Dates Problem Status W/U Status Risk Notes Problem Gynecological examination normal (444082934265162) Encounter for routine gynecological examination (Z01.419) Active confirmed Problem Family history of breast cancer (905972771) Family history of breast cancer (Z80.3) Active confirmed Problem Human papilloma virus screening (489521012) Screening for HPV (human papillomavirus) (Z11.51) Active confirmed Problem Bladder cystocele (280228135) Bladder cystocele (N81.10) Active confirmed Problem History of breast biopsy with benign finding (023965055142928) History of breast biopsy (Z98.890) Active confirmed Plan Of Treatment Pending Test Test Name Order Date Ultrasound : Breasts, bilateral 10/26/19 17 Diagnostic Bilateral mammogram (TOMOSFirmex ESIS ) 10/25/2016 Insurance Providers Payer Name Payer Address Payer Phone Subscriber Number Group Number Insured Name Patient Relationship to Insured Coverage Start Date Coverage End Date [employer] [address] [address] [place] [phone] [id number] JONI YOUNGBLOOD Self - patient is the insured 7 Medical (General) History Medical History History ICD Code thyroid depression Surgical History Surgery Date(Month/Year) right breast biopsy 05/2012 left artial salpingectomy 02/2014 endocervix curettage 02/2014 endometrium curettage 02/2014 Hospitalization History Reason Date(Month/Year) see above
== END 2025-04-22 09:48 | disposition home or self-care (01) ==
LOC: HO.HMCH 09:00
PROVIDERS: PCP Internal Medicine; Visit Provider Internal Medicine
DX: E78.00 Pure hypercholesterolemia, unspecified (principal); F33.0 Major depressive disorder, recurrent, mild; E11.9 Type 2 diabetes mellitus without complications; I10 Essential (primary) hypertension; E03.9 Hypothyroidism, unspecified; Z13.9 Encounter for screening, unspecified

== ENCOUNTER → 2025-04-22 08:59 | Outpatient (BNVA) | payer MEDICARE, SELFPAY | PROVIDERS: PCP Internal Medicine; Visit Provider Internal Medicine | DX: E11.9 Type 2 diabetes mellitus without complications (principal); H93.19 Tinnitus, unspecified ear; E05.90 Thyrotoxicosis, unspecified without thyrotoxic crisis or storm; E78.00 Pure hypercholesterolemia, unspecified; F33.0 Major depressive disorder, recurrent, mild; I10 Essential (primary) hypertension; E03.9 Hypothyroidism, unspecified; Z79.899 Other long term (current) drug therapy | CPT/HCPCS: 83036; 99212 ==

== ENCOUNTER 2025-07-12 08:49 | Outpatient (REF) | payer MEDICARE, SELFPAY ==
--- NOTE | ~2025-07-12 | MM_ITS ---
EXAMINATION: MM SCREENING DIGITAL BREAST TOMOSYNTHESIS, BILATERAL CLINICAL INFORMATION: Screening. Asymptomatic. COMPARISON: Mammography: Comparison is made with available priors TECHNIQUE: Digital breast mammography with tomosynthesis is performed in both the craniocaudal and mediolateral oblique views along with computer-aided detection (CAD). FINDINGS: The breasts are heterogeneously dense, which may obscure small masses. Right marker clip. There are no significant masses, abnormal calcifications, or other abnormalities. MM/MM tomosynthesis screening BI IMPRESSION: No mammographic evidence of malignancy. ASSESSMENT: BI-RADS Category 2: Benign RECOMMENDATION: Routine annual mammography screening. 1 year F/U This examination should not preclude the clinical evaluation of a suspicious palpable abnormality. This patient's information was entered into a reminder system with a target due date for their next mammogram. Electronically signed by: Winter Villa DO 07/13/2025 06:55 PM SYDNEE
== END 2025-07-12 08:50 | disposition home or self-care (01) ==
LOC: HO.MAMMO 08:49
PROVIDERS: PCP Internal Medicine; Visit Provider Internal Medicine
DX: Z12.31 Encounter for screening mammogram for malignant neoplasm of breast (principal)
CPT/HCPCS: 77063; 77067

== ENCOUNTER → 2025-07-12 09:15 | Outpatient (BNV) | payer MEDICARE, SELFPAY | PROVIDERS: PCP Internal Medicine; Visit Provider Internal Medicine | DX: Z12.31 Encounter for screening mammogram for malignant neoplasm of breast (principal) | CPT/HCPCS: 77063; 77067 ==